=== PATIENT | female | born 1955 | race Two or more races ===

== ENCOUNTER 2024-05-30 09:27 | Inpatient (IN) | payer BC ==
[~2024-05-30] VITALS: Ht 175.3 cm; Wt 84.8 kg
[2024-05-30 10:11] LABS: Urine Bacteria FEW /hpf (None Seen); Urine Blood Negative /uL (Negative); Urine Clarity Turbid (Clear); Urine Color Yellow (Yellow); Urine Protein, UAD Negative (Negative); Urine Specific Gravity 1.011 (1.001-1.035); Urine Urobilinogen Normal (Negative); Urine WBC 4 /hpf (0 - 5)
[2024-05-30 11:27] LABS: Basophils # (auto) 0.1 10 ^3/uL (0-0.2); Basophils % (auto) 0.7 % (0.0-2.0); Eosinophils # (auto) 0.2 10 ^3/uL (0-0.8); Eosinophils % (auto) 2.6 % (0.0-7.0); Hemoglobin 13.3 g/dL (12.2-16.2); Lymphocytes # (auto) 2.4 10 ^3/uL (0.4-5.4); Mean Corpuscular Hemoglobin 31.8 pg (28.0-32.0); Mean Corpuscular Volume 93.4 fL (80.0-100.0); Monocytes # (auto) 0.5 10 ^3/uL (0-1.3); Monocytes % (auto) 6.6 % (0.0-12.0); Neutrophils % (auto) 61.1 % (37.0-80.0); Platelet Count (auto) 300 10^3/uL (140-450); Red Blood Cells 4.18 10^6/uL (4.0-5.20); White Blood Cell 8.2 10^3/uL (4.4-10.8)
[2024-05-30 11:38] LABS: Alanine Aminotransferase 24 U/L (7-40); Albumin 4.2 g/dL (3.2-4.8); Alkaline Phosphatase 75 U/L (46-116); Anion Gap 4 (5-15); Aspartate Aminotransferase 17 U/L (13-40); Blood Urea Nitrogen 11 mg/dL (9-23); Calcium 10.2 mg/dL (8.7-10.4); Carbon Dioxide 31 mmol/L (20-30); Chloride 104 mmol/L (98-107); Glucose 99 mg/dL (74-106); Potassium 4.2 mmol/L (3.5-5.1); Sodium 139 mmol/L (136-145)
[2024-05-30 11:39] LABS: Bilirubin, Total 0.7 mg/dL (0.2-1.0); Total Protein 7.5 g/dL (5.7-8.2)
[2024-05-30 12:22] VITALS: PULSE 63; RESP 16; O2SAT 100
[2024-05-30] MEDS: ACETAMINOPHEN 500 MG TAB PO ONE (12:46)
[2024-05-30] MEDS: cefTRIAXone 1GM/50ML D5W 50 ML IV ONE (12:46)
[2024-05-30] MEDS ORDERED: NITROGLYCERIN 0.4 MG SL TAB SL PRN (14:30)
[2024-05-30] MEDS: IOHEXOL 350 MG/ML 100ML IJ ONE (15:23)
[2024-05-30 16:10] LABS: INR 1.03 (0.9-1.15); Prothrombin Time 10.9 sec (9.3-11.8)
[2024-05-30 19:45] VITALS: PULSE 68; RESP 16; O2SAT 97
[2024-05-30 21:21] VITALS: PULSE 66; RESP 14
[2024-05-30 21:36] VITALS: BP 180/72; PULSE 69; RESP 18; TEMP 98; O2SAT 93
[2024-05-30] MEDS ORDERED: ATOR20TA50 PO (22:03)
[2024-05-30] MEDS ORDERED: METO10TA3 PO (22:03)
[2024-05-30] MEDS ORDERED: SOLI10TA39 PO (22:03)
[2024-05-30] MEDS ORDERED: ESCI5TAB PO (22:03)
[2024-05-30] MEDS ORDERED: MULT1TAB95 PO (22:03)
[2024-05-30] MEDS ORDERED: CALC500C65 PO (22:03)
[2024-05-30] MEDS ORDERED: NITR0.4O2 PR (22:03)
[2024-05-30] MEDS ORDERED: NORT25CA PO (22:03)
[2024-05-30] MEDS ORDERED: NITR1SPR TL (22:03)
[2024-05-30] MEDS ORDERED: OMEP20TA PO (22:03)
[2024-05-30] MEDS ORDERED: CHOL200010 PO (22:03)
[2024-05-30] MEDS ORDERED: LISI20TA56 PO (22:03)
[2024-05-30] MEDS ORDERED: METO-158 PO (22:03)
[2024-05-30] MEDS ORDERED: GABA-339 PO (22:03)
[2024-05-30] MEDS ORDERED: INSLISPI SC (22:03)
[2024-05-30] MEDS ORDERED: INSLANTI SC (22:03)
[2024-05-30] MEDS ORDERED: AMLO1TAB22 PO (22:03)
[2024-05-31] VITALS (10 sets, daily range): BP systolic 136–165; BP diastolic 61–75; PULSE 68–85; RESP 15–20; TEMP 97.4–98.9; O2SAT 92–99
[2024-05-31] MEDS: ATORVASTATIN 20 MG TAB PO SCH (00:16)
[2024-05-31 08:06] LABS: RPR Non Reactive (Non Reactive)
[2024-05-31] MEDS: LOSARTAN POTASSIUM 25 MG TAB PO SCH (10:00)
[2024-05-31] MEDS: ACETAMINOPHEN 325 MG TAB PO PRN (10:00)
[2024-05-31] MEDS: ASPirin 81 mg TAB PO SCH (10:00)
[2024-05-31 11:33] LABS: Anion Gap 5 (5-15); Carbon Dioxide 28 mmol/L (20-30); Chloride 102 mmol/L (98-107); Potassium 4.1 mmol/L (3.5-5.1); Sodium 135 mmol/L (136-145)
[2024-05-31 11:34] LABS: Calcium 9.8 mg/dL (8.7-10.4)
[2024-05-31 11:39] LABS: BUN/Creatinine Ratio 12.3 (10.0-20.0); Blood Urea Nitrogen 10 mg/dL (9-23); Glucose 202 mg/dL (74-106)
[2024-05-31] MEDS ORDERED: LISINOPRIL 20 MG TAB PO ONE (12:00)
[2024-05-31] MEDS ORDERED: METOPROLOL TARTRATE 50 MG TAB PO ONE (12:00)
[2024-05-31] MEDS: cefTRIAXone 1GM/50ML D5W 50 ML IV ONE (14:33)
[2024-05-31] MEDS: amLODIPine BESYLATE 5 MG TAB PO ONE (14:33)
[2024-05-31] MEDS: METOPROLOL TARTRATE 50 MG TAB PO SCH (22:17)
[2024-05-31 22:51] LABS: Amphetamine Screen, Urine Neg (NEGATIVE); Barbiturate Scree,Urine Neg (NEGATIVE); Benzodiazephine Screen, Urine Neg (NEGATIVE); Cocaine Screen, Urine Neg (NEGATIVE)
[2024-05-31 22:52] LABS: Cannabinoid Screen, Urine Neg (NEGATIVE); Opiate Scree,Urine Neg (NEGATIVE); Phencyclidine Screen, Urine Neg (NEGATIVE)
[2024-06-01] VITALS (7 sets, daily range): BP systolic 129–163; BP diastolic 70–88; PULSE 56–80; RESP 15–16; TEMP 36.8–37.1; O2SAT 92–96
[2024-06-01 07:03] LABS: Basophils # (auto) 0.1 10 ^3/uL (0-0.2); Basophils % (auto) 0.8 % (0.0-2.0); Eosinophils # (auto) 0.1 10 ^3/uL (0-0.8); Eosinophils % (auto) 1.7 % (0.0-7.0); Hematocrit 39.8 % (36.0-46.0); Hemoglobin 13.5 g/dL (12.2-16.2); Lymphocytes # (auto) 1.6 10 ^3/uL (0.4-5.4); Lymphocytes % (auto) 22.9 % (10.0-50.0); Mean Corpuscular Hemoglobin 31.4 pg (28.0-32.0); Mean Corpuscular Hgb Conc. 33.8 g/dL (32.0-36.0); Mean Corpuscular Volume 92.7 fL (80.0-100.0); Monocytes # (auto) 0.5 10 ^3/uL (0-1.3); Monocytes % (auto) 7.2 % (0.0-12.0); Neutrophils # (auto) 4.6 10 ^3/uL (1.6-8.6); Neutrophils % (auto) 67.4 % (37.0-80.0); Nucleated Red Blood Cells % 0.1 %; Platelet Count (auto) 285 10^3/uL (140-450); Red Cell Distribution Width 13.7 % (11.8-14.3); White Blood Cell 6.8 10^3/uL (4.4-10.8)
[2024-06-01 07:14] LABS: Anion Gap 5 (5-15); Carbon Dioxide 29 mmol/L (20-30); Chloride 102 mmol/L (98-107); Potassium 4.2 mmol/L (3.5-5.1); Sodium 136 mmol/L (136-145)
[2024-06-01 07:15] LABS: Calcium 9.7 mg/dL (8.7-10.4)
[2024-06-01 07:20] LABS: BUN/Creatinine Ratio 9.5 (10.0-20.0); Blood Urea Nitrogen 8 mg/dL (9-23); Glucose 168 mg/dL (74-106)
[2024-06-01] MEDS: LISINOPRIL 20 MG TAB PO SCH (09:33)
[2024-06-01] MEDS: cefTRIAXone 1GM/50ML D5W 50 ML IV SCH (09:34)
[2024-06-01] MEDS: amLODIPine BESYLATE 5 MG TAB PO SCH (09:34)
== END 2024-06-01 15:50 | disposition home or self-care (01) | DRG 74 ==
LOC: ER 09:27 → OVERFLOW 14:33 → EAST 14:33
PROVIDERS: ADMIT Internal Medicine; ATTEND Emergency Medicine
DX: E11.42 Type 2 diabetes mellitus with diabetic polyneuropathy (principal); N39.0 Urinary tract infection, site not specified; I10 Essential (primary) hypertension; E78.5 Hyperlipidemia, unspecified; E66.3 Overweight; Z90.49 Acquired absence of other specified parts of digestive tract; Z86.73 Personal history of transient ischemic attack (TIA), and cerebral infarction without residual deficits; Z68.27 Body mass index [BMI] 27.0-27.9, adult
CPT/HCPCS: 36415; 70450; 70496; 70551; 71045; 80048; 80053; 80307; 81001; 82607; 82746; 82962; 83036; 83880; 84100; 84443; 84484; 85025; 85610; 86592; 87086; 93005; 97163; G0378

== ENCOUNTER → 2024-08-21 | Outpatient (CLI) | payer BC ==
[~2024-08-21] MED LIST: AMLO1TAB22 PO; ATOR20TA50 PO; CALC500C65 PO; CHOL200010 PO; ESCI5TAB PO; GABA-339 PO; INSLANTI SC; INSLISPI SC; LISI20TA56 PO; METO-158 PO; METO10TA3 PO; MULT1TAB95 PO; NITR0.4O2 PR; NITR1SPR TL; NORT25CA PO; OMEP20TA PO; SOLI10TA39 PO
[2024-08-21 09:09] LABS: Basophils # (auto) 0 10 ^3/uL (0-0.2); Basophils % (auto) 0.7 % (0.0-2.0); Eosinophils # (auto) 0.1 10 ^3/uL (0-0.8); Eosinophils % (auto) 1.6 % (0.0-7.0); Hematocrit 39.3 % (36.0-46.0); Hemoglobin 13.3 g/dL (12.2-16.2); Lymphocytes # (auto) 1.7 10 ^3/uL (0.4-5.4); Lymphocytes % (auto) 23.5 % (10.0-50.0); Mean Corpuscular Hemoglobin 31.6 pg (28.0-32.0); Mean Corpuscular Hgb Conc. 33.9 g/dL (32.0-36.0); Mean Corpuscular Volume 93.4 fL (80.0-100.0); Monocytes # (auto) 0.5 10 ^3/uL (0-1.3); Monocytes % (auto) 7.3 % (0.0-12.0); Neutrophils # (auto) 4.9 10 ^3/uL (1.6-8.6); Neutrophils % (auto) 66.9 % (37.0-80.0); Nucleated Red Blood Cells % 0.1 %; Platelet Count (auto) 273 10^3/uL (140-450); Red Blood Cells 4.21 10^6/uL (4.0-5.20); Red Cell Distribution Width 13.7 % (11.8-14.3); White Blood Cell 7.3 10^3/uL (4.4-10.8)
[2024-08-21 09:29] LABS: Alanine Aminotransferase 16 U/L (7-40); Alkaline Phosphatase 75 U/L (46-116); Anion Gap 5 (5-15); Aspartate Aminotransferase 17 U/L (13-40); BUN/Creatinine Ratio 14.4 (10.0-20.0); Blood Urea Nitrogen 13 mg/dL (9-23); Calcium 10.2 mg/dL (8.7-10.4); Carbon Dioxide 31 mmol/L (20-31); Chloride 106 mmol/L (98-107); Glucose 95 mg/dL (74-106); Potassium 4.4 mmol/L (3.5-5.1); Sodium 142 mmol/L (136-145)
[2024-08-21 09:30] LABS: Bilirubin, Total 0.7 mg/dL (0.2-1.0); Total Protein 6.8 g/dL (5.7-8.2)
== END | disposition home or self-care (01) ==
LOC: LAB 08:17
PROVIDERS: ATTEND Internal Medicine Nephrology
DX: R14.0 Abdominal distension (gaseous)
CPT/HCPCS: 36415; 80053; 82306; 83735; 85025

== ENCOUNTER → 2024-12-26 | Outpatient (CLI) | payer BC ==
[2024-12-26 08:43] LABS: Basophils # (auto) 0.1 10 ^3/uL (0-0.2); Basophils % (auto) 0.9 % (0.0-2.0); Eosinophils # (auto) 0.2 10 ^3/uL (0-0.8); Eosinophils % (auto) 2.6 % (0.0-7.0); Hematocrit 38.5 % (36.0-46.0); Hemoglobin 13.1 g/dL (12.2-16.2); Lymphocytes # (auto) 1.9 10 ^3/uL (0.4-5.4); Lymphocytes % (auto) 24.3 % (10.0-50.0); Mean Corpuscular Hemoglobin 31.9 pg (28.0-32.0); Monocytes # (auto) 0.6 10 ^3/uL (0-1.3); Monocytes % (auto) 7.5 % (0.0-12.0); Neutrophils # (auto) 5.1 10 ^3/uL (1.6-8.6); Neutrophils % (auto) 64.7 % (37.0-80.0); Nucleated Red Blood Cells % 0.1 %; Platelet Count (auto) 257 10^3/uL (140-450); Red Cell Distribution Width 13.8 % (11.8-14.3); White Blood Cell 7.9 10^3/uL (4.4-10.8)
[2024-12-26 09:00] LABS: Alanine Aminotransferase 14 U/L (7-40); Albumin 4.3 g/dL (3.2-4.8); Alkaline Phosphatase 84 U/L (46-116); Anion Gap 8 (5-15); Aspartate Aminotransferase 14 U/L (13-40); BUN/Creatinine Ratio 12.1 (10.0-20.0); Bilirubin, Total 0.7 mg/dL (0.2-1.0); Blood Urea Nitrogen 12 mg/dL (9-23); Carbon Dioxide 29 mmol/L (20-31); Chloride 102 mmol/L (98-107); Potassium 4.7 mmol/L (3.5-5.1); Sodium 139 mmol/L (136-145); Total Protein 7.1 g/dL (5.7-8.2)
[2024-12-26 09:01] LABS: Glucose 148 mg/dL (74-106); Urine Bacteria FEW /hpf (None Seen); Urine Blood Negative /uL (Negative); Urine Clarity Turbid (Clear); Urine Color Yellow (Yellow); Urine Mucus FEW (None Seen); Urine Protein, UAD Negative (Negative); Urine Specific Gravity 1.023 (1.001-1.035); Urine Squamous Epithelial Cell FEW /hpf (<5); Urine Urobilinogen 2 mg/dL (Negative); Urine WBC 4 /HPF (0-5); Urine pH 5.5 (5.0-9.0)
[2024-12-26 09:07] LABS: Creatinine, Urine 141.64 mg/dL (30.0-125.0)
== END | disposition home or self-care (01) ==
LOC: LAB 08:25
PROVIDERS: ATTEND Internal Medicine Nephrology
DX: E11.22 Type 2 diabetes mellitus with diabetic chronic kidney disease (principal); N18.30 Chronic kidney disease, stage 3 unspecified; E11.21 Type 2 diabetes mellitus with diabetic nephropathy; E21.3 Hyperparathyroidism, unspecified; E55.9 Vitamin D deficiency, unspecified; M10.9 Gout, unspecified; N39.0 Urinary tract infection, site not specified; R80.9 Proteinuria, unspecified; D63.1 Anemia in chronic kidney disease
CPT/HCPCS: 36415; 80053; 81001; 82043; 82570; 85025

== ENCOUNTER → 2025-01-22 | Outpatient (CLI) | payer BC ==
[2025-01-22 08:49] LABS: Basophils # (auto) 0.1 10 ^3/uL (0-0.2); Basophils % (auto) 1.1 % (0.0-2.0); Eosinophils # (auto) 0.2 10 ^3/uL (0-0.8); Eosinophils % (auto) 2.8 % (0.0-7.0); Hematocrit 40.3 % (36.0-46.0); Hemoglobin 13.4 g/dL (12.2-16.2); Lymphocytes # (auto) 1.3 10 ^3/uL (0.4-5.4); Lymphocytes % (auto) 19.5 % (10.0-50.0); Mean Corpuscular Hemoglobin 30.8 pg (28.0-32.0); Mean Corpuscular Hgb Conc. 33.3 g/dL (32.0-36.0); Mean Corpuscular Volume 92.4 fL (80.0-100.0); Monocytes # (auto) 0.5 10 ^3/uL (0-1.3); Monocytes % (auto) 7.7 % (0.0-12.0); Neutrophils # (auto) 4.5 10 ^3/uL (1.6-8.6); Neutrophils % (auto) 68.9 % (37.0-80.0); Platelet Count (auto) 252 10^3/uL (140-450); Red Blood Cells 4.36 10^6/uL (4.0-5.20); Red Cell Distribution Width 13.6 % (11.8-14.3); White Blood Cell 6.5 10^3/uL (4.4-10.8)
[2025-01-22 08:51] LABS: Urine Bacteria None Seen /hpf (None Seen)
[2025-01-22 09:11] LABS: Alanine Aminotransferase 15 U/L (7-40); Albumin 4.2 g/dL (3.2-4.8); Alkaline Phosphatase 84 U/L (46-116); Anion Gap 8 (5-15); Aspartate Aminotransferase 17 U/L (13-40); BUN/Creatinine Ratio 15.5 (10.0-20.0); Blood Urea Nitrogen 15 mg/dL (9-23); Calcium 9.9 mg/dL (8.7-10.4); Chloride 103 mmol/L (98-107); Cholesterol 146 mg/dL (< 200); LDL Cholesterol 69 mg/dL (< 100); Potassium 4.8 mmol/L (3.5-5.1); Sodium 142 mmol/L (136-145); Triglycerides 54 mg/dL (< 150)
[2025-01-22 09:15] LABS: Carbon Dioxide 31 mmol/L (20-31); Glucose 147 mg/dL (74-106); HDL Cholesterol 60 mg/dL (40-59)
[2025-01-22 09:27] LABS: Urine Blood Negative /uL (Negative); Urine Clarity Clear (Clear); Urine Color Yellow (Yellow); Urine Mucus FEW (None Seen); Urine Protein, UAD Negative (Negative); Urine Squamous Epithelial Cell FEW /hpf (<5); Urine Urobilinogen Normal (Negative); Urine WBC 1 /HPF (0-5); Urine pH 5.5 (5.0-9.0)
[2025-01-22 09:38] LABS: Creatinine, Urine 128.97 mg/dL (30.0-125.0)
== END | disposition home or self-care (01) ==
LOC: LAB 08:32
PROVIDERS: ATTEND Internal Medicine
DX: E11.22 Type 2 diabetes mellitus with diabetic chronic kidney disease (principal); N18.2 Chronic kidney disease, stage 2 (mild); E11.40 Type 2 diabetes mellitus with diabetic neuropathy, unspecified; I25.10 Atherosclerotic heart disease of native coronary artery without angina pectoris; R82.90 Unspecified abnormal findings in urine; Z00.01 Encounter for general adult medical examination with abnormal findings
CPT/HCPCS: 36415; 80053; 80061; 81001; 82043; 82570; 83036; 84439; 84443; 85025

== ENCOUNTER 2025-06-11 13:15 | Inpatient (IN) | payer BC ==
[~2025-06-11] VITALS: Ht 175.3 cm; Wt 93.0 kg
--- NOTE | 2025-06-11 13:46 | ED.PDOC ---
HPI (NEURO) HPI Comments 69y F who presents to the ED for chief complaint of generalized weakness. Pt presents with daughter who states pt has been having intermittent falls for the past 2x months. Pt daughter states pt did have 2x falls in the past 1x week and states pt did hit her head without any loc last Tuesday and did not seek medical care then. Pt also had fall from bed yesterday and daughter found face down in bedroom floor while attempting to grab a glass of water from dresser. Pt in the ED, states feels weak with associated dizziness and nausea. Pt in the ED, is alert and oriented x 4. Pt does present in wheelchair. Pt otherwise has stable vitals in the ED. Chief Complaint: General Weakness Time Seen by MD: 13:42 Primary Care Provider: GILDARDO Flores Notes: Nurses Notes, Medications, Allergies Information Source: Patient Mode of Arrival: Wheelchair Brought in by: daughter Severity: Moderate Dizziness/Weakness Severity: Unable to do activities Headache Severity: None Timing: Weeks, Months Duration: Since onset Prehospital treatment: None Onset: At rest Circumstances: Spontaneous Symptoms: Weakness History of: DM, Hypertension Modifying factors: Nothing Associated Signs and Symptoms: Nausea, Weakness, Other (dizziness) Past Medical History PAST MEDICAL HISTORY: DM, High Lipids, HTN, UTI'S Past Medical History (Other): stage 2 CKD Surgical History: Appendectomy, Cholecystectomy Surgical History (Other): L knee surgery Family History Family History: Reviewed,noncontributory to illness, No family hx of Heart lorrie, No family hx of HTN, No family hx ofKidney lorrie, No family hx of Liver lorrie, No family hx of Lung lorrie, No family hx of Stroke, Family hx of DM, Family hx of Cancer Social History Smoker: Non-Smoker Alcohol: Denies ETOH Use Drugs: Denies Drug Use Constitutional: reports: malaise, weakness; denies: chills, diaphoresis, fatigue, fever, sweats, others EENTM: denies: blurred vision, double vision, ear bleeding, ear discharge, ear drainage, ear pain, ear ringing, eye pain, eye redness, hearing loss, mouth pain, mouth swelling, nasal discharge, nose bleeding, nose congestion, nose pain, photophobia, tearing, throat pain, throat swelling, voice changes, others Respiratory: denies: cough, hemoptysis, orthopnea, SOB at rest, shortness of breath, SOB with excertion, stridor, wheezing, others Cardiovascular: denies: chest pain, dizzy spells, diaphoresis, Dyspnea on exertion, edema, irregular heart beat, left arm pain, lightheadedness, palpitations, PND, syncope, others Gastrointestinal: reports: nausea; denies: abdomen distended, abdominal pain, blood streaked bowels, constipated, diarrhea, dysphagia, difficulty swallowing, hematemesis, melena, poor appetite, poor fluid intake, rectal bleeding, rectal pain, vomiting, others Genitourinary: denies: abnormal vagina bleeding, burning, dyspareunia, dysuria, flank pain, frequency, hematuria, incontinence, pain, , vagina discharge, urgency, others Neurological: reports: dizziness; denies: fainting, headache, left sided numbness, left sided weakness, numbness, paresthesia, pre-existing deficit, right sided numbness, right sided weakness, seizure, speech problems, tingling, tremors, weakness, others Musculoskeletal: denies: back pain, gout, joint pain, joint swelling, muscle pain, muscle stiffness, neck pain, others Integumetry: denies: bruises, change in color, change in hair/nails, dryness, laceration, lesions, lumps, rash, wounds, others Allergic/Immunocompromised: denies: Difficulty Healing, Frequent Infections, Hives, Itching, others Hematologic/Lymphatic: denies: anemia, blood clots, easy bleeding, easy bruis ing, swollen glands, others Endocrine: denies: excessive hunger, excessive sweating, excessive thirst, exc essive urination, flushing, intolerance to cold, intolerance to heat, unexplained weight gain, unexplained weight loss, others Psychiatric: denies: anxiety, bipolar disorder, depression, hopeless, panic disorder, schizophrenia, sleepless, suicidal, others All Other Systems: Reviewed and Negative Physical Exam General Appearance: Moderate Distress HEENT: Normal ENT Inspection, Pharynx Normal, TMs Normal Neck: Full Range of Motion, Non-Tender, Normal, Normal Inspection Respiratory: Chest Non-Tender, Lungs Clear, No Accessory Muscle Use, No Respiratory Distress, Normal Breath Sounds Cardiovascular: No Edema, No JVD, No Murmur, No Gallop, Normal Peripheral Pulses, Regular Rate/Rhythm Breast Exam: Deferred Gastrointestinal: No Organomegaly, Non Tender, No Pulsatile Mass, Normal Bowel Sounds, Soft Genitalia: Deferred Pelvic: Deferred Rectal: Deferred Extremities: No calf tenderness, Normal capillary refill, Pedal edema Musculoskeletal : Apperance: Normal Neurologic: Alert, block engraver II-XII nml as Tested, Motor Weakness, Normal Affect, Normal Mood, No Sensory Deficits Cerebellar Function: Normal Reflexes: Normal Skin: Dry, Pallor, Warm Lymphatic: No Adenopathy Was a procedure done? Was a procedure done?: No Differential Diagnosis (SZ) Seizure: N/A General Weakness: Anemia, Dehydration, Electrolyte imbalance, Encephalopathy, Hypoglycemia, Other (UTI, CKD, failure to thrive, h/o falls, ) Headache: Closed Head Injury X-Ray, Labs, Meds, VS Vital Signs Date Time Temp Pulse Resp B/P (MAP) Pulse Ox O2 Delivery O2 Flow Rate FiO2 06/11/25 13:21 97.6 77 17 139/79 99 97.6 Lab Test 06/11/25 13:57 06/11/25 13:40 Range/Units Urine Color Yellow Yellow Urine Clarity Clear Clear Urine pH 5.5 5.0-9.0 Urine Specific [place] 1.016 1.001-1.035 Urine Protein Negative Negative Urine Ketones Trace Negative Urine Blood Negative Negative /uL Urine Nitrite Negative Negative Urine Bilirubin Negative Negative Urine Urobilinogen Normal Negative mg/dL Urine Leukocyte Esterase 2+ Negative /uL Urine RBC 2 0 - 4 /hpf Urine Microscopic WBC 7 H 0-5 /HPF Urine Squamous Epithelial Cells Few <5 /hpf Urine Bacteria None seen None Seen /hpf Urine Mucus Few None Seen Urine Glucose Normal Normal mg/dL White Blood Count 6.3 4.4-10.8 10^3/uL Red Blood Count 4.23 4.0-5.20 10^6/uL Hemoglobin 13.0 12.2-16.2 g/dL Hematocrit 38.8 36.0-46.0 % Mean Corpuscular Volume 91.7 80.0-100.0 fL Mean Corpuscular Hemoglobin 30.7 28.0-32.0 pg Mean Corpuscular Hemoglobin Concent 33.4 32.0-36.0 g/dL Red Cell Distribution Width 13.7 11.8-14.3 % Platelet Count 249 140-450 10^3/uL Mean Platelet Volume 7.6 6.9-10.8 fL Neutrophils (%) (Auto) 86.3 H 37.0-80.0 % Lymphocytes (%) (Auto) 6.3 L 10.0-50.0 % Monocytes (%) (Auto) 6.5 0.0-12.0 % Eosinophils (%) (Auto) 0.2 0.0-7.0 % Basophils (%) (Auto) 0.7 0.0-2.0 % Neutrophils # (Auto) 5.5 1.6-8.6 10 ^3/uL Lymphocytes # (Auto) 0.4 0.4-5.4 10 ^3/uL Monocytes # (Auto) 0.4 0-1.3 10 ^3/uL Eosinophils # (Auto) 0 0-0.8 10 ^3/uL Basophils # (Auto) 0 0-0.2 10 ^3/uL Nucleated Red Blood Cells 0.0 % Sodium Level 136 136-145 mmol/L Potassium Level 3.9 3.5-5.1 mmol/L Chloride Level 101 98-107 mmol/L Carbon Dioxide Level 27 20-31 mmol/L Anion Gap 8 5-15 Blood Urea Nitrogen 13 9-23 mg/dL Creatinine 1.06 H 0.550-1.02 mg/dL Glomerular Filtration Rate Calc 57 >90 mL/min BUN/Creatinine Ratio 12.3 10.0-20.0 Serum Glucose 96 74-106 mg/dL Calcium Level 9.6 8.7-10.4 mg/dL B-Type Natriuretic Peptide 83.65 0-100 pg/mL PROCEDURE(s): CXR2 - CHEST TWO VIEWS ROUTINE IMPRESSION: No acute cardiopulmonary disease. PROCEDURE(s): HWOCT - HEAD WITHOUT CONTRAST IMPRESSION: No intracranial hemorrhage or mass effect. Prominent pituitary gland measuring 12 x 9 mm. Recommend correlation with appropriate lab values. MRI of the brain with and without contrast, pituitary protocol recommended for further evaluation. The CBC is within normal limits The chemistry panel is within normal limits The urine test is positive for UTI Patient had an IV Hep-Lock established The patient is given Rocephin 1 g IV for the UTI Images Reviewed?: Images reviewed and evaluated by me Time of 1ST Reevaluation: 14:15 Reevaluation 1ST: Unchanged Patient Education/Counseling: Diagnosis, Treatment, Prognosis Family Education/Counseling: Diagnosis, Treatment, Prognosis Departure 1 Departure Time of Disposition: 19:21 Impression: Primary Impression: Autonomic dysfunction Additional Impression: UTI (urinary tract infection) Qualified Codes: N30.00 - Acute cystitis without hematuria Disposition: ADMITTED INPATIENT Admit to: Med Surg Condition: Fair Critical Care Note Critical Care Time?: No Stability Stability form required: Yes Unstable for transfer: ED Physician Assesment (Clinical assesment) Heart Score Heart Score: Heart Score Response (Comments) Value History N/A 0 EKG N/A 0 Age N/A 0 Risk Factors N/A 0 Troponin N/A 0 Total 0 I personally scribed for SCOOTER RANDHAWA MD ([email or web address]) on 06/11/25 at 13:46. Electronically submitted by Aashish Reynoso ([email or web address]). I personally scribed for SCOOTER RANDHAWA MD ([email or web address]) on 06/11/25 at 15:02. Elec tronically submitted by Aashish Reynoso ([email or web address]). SCOOTER RANDHAWA MD Jun 11, 2025 13:46
[2025-06-11 14:30] LABS: Hematocrit 38.8 % (36.0-46.0); Hemoglobin 13.0 g/dL (12.2-16.2); Mean Corpuscular Hemoglobin 30.7 pg (28.0-32.0); Mean Corpuscular Volume 91.7 fL (80.0-100.0); Nucleated Red Blood Cells % 0.0 %
[2025-06-11 14:36] LABS: Chloride 101 mmol/L (98-107); Potassium 3.9 mmol/L (3.5-5.1); Sodium 136 mmol/L (136-145)
[2025-06-11 14:37] LABS: Anion Gap 8 (5-15); Carbon Dioxide 27 mmol/L (20-31)
[2025-06-11 14:38] LABS: Calcium 9.6 mg/dL (8.7-10.4)
[2025-06-11 14:42] LABS: Glucose 96 mg/dL (74-106)
[2025-06-11 14:43] LABS: BUN/Creatinine Ratio 12.3 (10.0-20.0); Blood Urea Nitrogen 13 mg/dL (9-23)
--- NOTE | 2025-06-11 14:49 | DVH ---
XY CHEST TWO VIEWS ROUTINE CLINICAL HISTORY: weakness COMPARISON: XY CHEST TWO VIEWS ROUTINE on DOS: 09/04/24, XY CHEST TWO VIEWS ROUTINE on DOS: 09/08/23, PCP6 on DOS: 10/20/22 TECHNIQUE: Frontal and lateral view of the chest was obtained FINDINGS: Lines and Tubes: None Lungs: No focal consolidation. Pleura: No effusion. No pneumothorax. Cardiomediastinal contours: Unremarkable Bones: No acute osseous abnormality. IMPRESSION: No acute cardiopulmonary disease.
--- NOTE | 2025-06-11 14:50 | DVH ---
CT HEAD WITHOUT CONTRAST Indication: weakness EXAM DATE: 06/11/2025 02:12 PM COMPARISON: CT HEAD WITHOUT CONTRAST on DOS: 05/30/24 report only, images not available for comparison TECHNIQUE: CT of the head without intravenous contrast. RADIATION DOSE: CTDIvol: 57 mGy, DLP: 1006 mGy*cm FINDINGS: There is no intracranial hemorrhage. There is no extra-axial fluid, midline shift. Prominent/ enlarg ed pituitary gland measuring 12 x 9 mm. The ventricles are midline and normal in size. Basilar cister ns are patent. Ozuna-white differentiation is maintained. The paranasal sinuses and mastoids are well-pneumatized. Imaged portion of the orbits are unremarkabl e. IMPRESSION: No intracranial hemorrhage or mass effect. Prominent pituitary gland measuring 12 x 9 mm. Recommend correlation with appropriate lab values. MR I of the brain with and without contrast, pituitary protocol recommended for further evaluation.
[2025-06-11 15:55] LABS: Urine Protein, UAD Negative (Negative)
[2025-06-11 20:16] VITALS: PULSE 74; RESP 20; O2SAT 95
--- NOTE | 2025-06-11 22:43 | DVHHPRES ---
History of Present Illness Resident Creating Document: GUS NIELSEN RESIDENT History of Present Illness Vivian Abrams is a 69 year old female with past medical history of diabetes mellitus, hyperlipidemia, hypertension, recurrent UTIs, stage II CKD who presented to the ED with chief complaint of generalized weakness, and fall this morning due to leg weakness. Patient states she had a history of fall last week with head trauma due to loss of balance, and that she had multiple falls over the last 3 months. He also had fall from bed yesterday and daughter found face down in bedroom floor while attempting to grab a glass of water from dresser. Patient also complained of feeling nauseous, dizzy. Patient is admitted for further management. Surgical history: Appendicectomy, cholecystectomy Family History: Reviewed, noncontributory Personal history: Patient denies smoking, drinking, drug use Lives with: Family PCP: Dr. Gupta Review of Systems Constitutional: Yes: Weakness, Other (Dizziness); No: Fever, Chills, Sweats, Malaise Eyes: No: Pain, Vision change, Conjunctivae inflammation, Eyelid inflammation, Other, Redness ENT: No: Ear pain, Ear discharge, Nose pain, Nose discharge, Nose congestion, M outh pain, Mouth swelling, Throat pain, Throat swelling, Other Respiratory: No: Cough, Dry, Shortness of breath, SOB with excertion, Wheezing, Hemoptysis, Pleuritic Pain, Sputum, Wheezing, Other Cardiovascular: No: Chest Pain, Palpitations, Orthopnea, Paroxysmal Noc. Dyspnea, Edema, Lt Headedness, Other Gastrointestinal: Nausea; No: Vomiting, Abdominal Pain, Diarrhea, Constipation, Melena, Hematochezia, Other Genitourinary: No Dysuria, No Frequency, No Incontinence, No Hematuria, No Retention, No Other Musculoskeletal: No: other, neck pain, shoulder pain, arm pain, back pain, hand pain, leg pain, foot pain Skin: No: Rash, Lesions, Jaundice, Bruising, Other Neurological: No: Weakness, Numbness, Incoordination, Change in speech, Confu jesika, Seizures, Other Allergies: Coded Allergies: No Known Drug Allergy (Verified Allergy, Unknown, 05/30/24) Exam Vital Signs Vital Signs Date Time Temp Pulse Resp B/P (MAP) Pulse Ox O2 Delivery O2 Flow Rate FiO2 06/11/25 20:16 74 20 95 Room Air* 0 21 06/11/25 20:16 98.4 136/75 (95) 98.4 Exam General: Patient alert and oriented in person, place and time. Patient following commands. Generalized weakness HEENT: Normocephalic, atraumatic, moist mucous membranes Respiratory/pulmonary: Clear lungs bilaterally, vesicular murmurs present in almost all lung palma, no associated crackles or wheezes. Cardiovascular: Normal heart sounds S1 and S2 with no associated murmurs Abdomen: Abdomen nondistended, there is no pain to palpation in any of the abdominal quadrants, no palpable masses. Extremities: Mild pitting edema Peripheral Pulses: 3+ Radial (R). 3+ Radial (L). 3+ Dorsalis pedis (R). 3+ Dorsalis pedis(L) Skin: No rashes or pruritus, there is no sacral edema present at this time. Neurological: Intact cranial nerves with no focal neurologic deficits Labs/Xrays Labs Test 06/11/25 13:57 06/11/25 13:40 Range/Units Urine Color Yellow Yellow Urine Clarity Clear Clear Urine pH 5.5 5.0-9.0 Urine Specific [place] 1.016 1.001-1.035 Urine Protein Negative Negative Urine Ketones Trace Negative Urine Blood Negative Negative /uL Urine Nitrite Negative Negative Urine Bilirubin Negative Negative Urine Urobilinogen Normal Negative mg/dL Urine Leukocyte Esterase 2+ Negative /uL Urine RBC 2 0 - 4 /hpf Urine Microscopic WBC 7 H 0-5 /HPF Urine Squamous Epithelial Cells Few <5 /hpf Urine Bacteria None seen None Seen /hpf Urine Mucus Few None Seen Urine Glucose Normal Normal mg/dL White Blood Count 6.3 4.4-10.8 10^3/uL Red Blood Count 4.23 4.0-5.20 10^6/uL Hemoglobin 13.0 12.2-16.2 g/dL Hematocrit 38.8 36.0-46.0 % Mean Corpuscular Volume 91.7 80.0-100.0 fL Mean Corpuscular Hemoglobin 30.7 28.0-32.0 pg Mean Corpuscular Hemoglobin Concent 33.4 32.0-36.0 g/dL Red Cell Distribution Width 13.7 11.8-14.3 % Platelet Count 249 140-450 10^3/uL Mean Platelet Volume 7.6 6.9-10.8 fL Neutrophils (%) (Auto) 86.3 H 37.0-80.0 % Lymphocytes (%) (Auto) 6.3 L 10.0-50.0 % Monocytes (%) (Auto) 6.5 0.0-12.0 % Eosinophils (%) (Auto) 0.2 0.0-7.0 % Basophils (%) (Auto) 0.7 0.0-2.0 % Neutrophils # (Auto) 5.5 1.6-8.6 10 ^3/uL Lymphocytes # (Auto) 0.4 0.4-5.4 10 ^3/uL Monocytes # (Auto) 0.4 0-1.3 10 ^3/uL Eosinophils # (Auto) 0 0-0.8 10 ^3/uL Basophils # (Auto) 0 0-0.2 10 ^3/uL Nucleated Red Blood Cells 0.0 % Sodium Level 136 136-145 mmol/L Potassium Level 3.9 3.5-5.1 mmol/L Chloride Level 101 98-107 mmol/L Carbon Dioxide Level 27 20-31 mmol/L Anion Gap 8 5-15 Blood Urea Nitrogen 13 9-23 mg/dL Creatinine 1.06 H 0.550-1.02 mg/dL Glomerular Filtration Rate Calc 57 >90 mL/min BUN/Creatinine Ratio 12.3 10.0-20.0 Serum Glucose 96 74-106 mg/dL Calcium Level 9.6 8.7-10.4 mg/dL B-Type Natriuretic Peptide 83.65 0-100 pg/mL SEPSIS Sepsis Screen Date sepsis recognized/suspect: Jun 11, 2025 Time Sepsis recognized/suspect: 2022 Recent Procedure: No On Antibiotic Therapy: No Respiratory Rate >20: No Heart Rate >90: No Temp<36 C (96.8 F) or >38.3 C: No SBP <90 or MAP <65 mmHG: No New Acute Mental Status Change: No Is the patient on CPAP, BIPAP,: No Vital Signs Date Time Temp Pulse Resp B/P (MAP) Pulse Ox O2 Delivery O2 Flow Rate FiO2 06/11/25 20:16 74 20 95 Room Air* 0 21 06/11/25 20:16 98.4 74 20 136/75 (95) 95 98.4 Laboratory Tests Test 06/11/25 13:40 White Blood Count 6.3 10^3/uL (4.4-10.8) Medications Medications Dose Ordered Sig/[place] Route Start Time Stop Time Status Last Admin Dose Admin Ceftriaxone Sodium 50 ml @ 100 mls/hr ONCE ONCE IV 06/11/25 19:30 06/11/25 19:59 DC 06/11/25 20:37 100 MLS/HR Assessment/Plan Assessment/Plan Assessment and plan # presyncope # recurrent falls - Neurology consult , pending - Orthostatic vitals - BNP - Tropes - Folic acid - B12 - TSH - Carotid duplex - echo - EKG # acute complicated UTI - IV ceftriaxone # Hypertension - Continue home meds #Hyperlipidemia -continue home meds # Type 2 diabetes mellitus - HbA1c - mild insulin sliding scale # obesity, BMI 31.8 -patient advised on lifestyle modifications, diet, exercise for 13 minutes Goals of care addressed with the patient for more than 31 minutes: Full code status Case discussed with Dr. Mann , patient and nurse Plan discussed with: Patient Date of Service: Jun 11, 2025 Billing Provider: PIPER MANN MD Common Visit Codes: 44488-[id number] INP/OBS CARE (HIGH) Secondary Visit Codes: [id number]-[id number] CARE PLAN 30 MINUTES GUS NIELSEN RESIDENT Jun 11, 2025 22:43
[2025-06-12] VITALS (7 sets, daily range): BP systolic 106–142; BP diastolic 57–75; PULSE 61–80; RESP 16–18; TEMP 97.5–98.4; O2SAT 94–99
[2025-06-12] MEDS ORDERED: DEXTROSE (50%) 50ML SYRG IV PRN (06:45)
[2025-06-12 07:26] LABS: Alanine Aminotransferase 28 U/L (7-40); Albumin 4.0 g/dL (3.2-4.8); Alkaline Phosphatase 84 U/L (46-116); Anion Gap 10 (5-15); BUN/Creatinine Ratio 12.0 (10.0-20.0); Blood Urea Nitrogen 11 mg/dL (9-23); Calcium 9.3 mg/dL (8.7-10.4); Carbon Dioxide 27 mmol/L (20-31); Chloride 102 mmol/L (98-107); Cholesterol 120 mg/dL (< 200); Sodium 139 mmol/L (136-145); Total Protein 7.2 g/dL (5.7-8.2); Triglycerides 73 mg/dL (< 150)
[2025-06-12 07:27] LABS: Bilirubin, Direct 0.3 mg/dL (<0.3); Bilirubin, Total 0.7 mg/dL (0.2-1.0); HDL Cholesterol 52 mg/dL (40-59)
[2025-06-12 07:29] LABS: INR 1.04 (0.9-1.15); Prothrombin Time 11.0 sec (9.3-11.8)
[2025-06-12 07:30] LABS: Hematocrit 38.2 % (36.0-46.0); Hemoglobin 13.1 g/dL (12.2-16.2); Mean Corpuscular Hemoglobin 31.2 pg (28.0-32.0); Mean Corpuscular Volume 90.8 fL (80.0-100.0); Nucleated Red Blood Cells % 0.1 %
[2025-06-12 07:33] LABS: Glucose 123 mg/dL (74-106); Potassium 3.3 mmol/L (3.5-5.1)
[2025-06-12] MEDS: METOPROLOL TARTRATE 50 MG TAB PO SCH (09:40)
--- NOTE | 2025-06-12 09:48 | DVH ---
Carotid Duplex Date: 06/12/2025 08:36 AM Clinical History: presyncope Comparison: US ECHO 2D MODE CARDIAC DOP on DOS: 02/07/25, CT ANGIO HEAD/NECK on DOS: 05/30/24 Technique: Duplex Doppler evaluation of the extracranial carotid and vertebral arteries including col or Doppler and spectral/pulsed waveform analysis was performed. Findings: Velocities and ratios within normal limits. IMPRESSION: No hemodynamically significant stenosis noted in the right carotid system. No hemodynamically significant stenosis noted in the left carotid system. Reference: Radiology 2003; 229:[id number]
[2025-06-12] MEDS: InsuLIN REG 1unit/0.01ml Soln (100units/ml) SC SCH (11:30)
[2025-06-12] MEDS: ACCU-CHEK COMFORT CURVE STRIP VI SCH (11:30)
--- NOTE | 2025-06-12 11:55 | DVHPN2 ---
Reviewed: Care Plan, H&P, Labs, Medications, Previous Orders, Radiology Changes from previous H/P or p: No Changes Eyes: No Pain, No Vision change, No Conjunctivae inflammation, No Eyelid inflammation, No Other, No Redness ENT: No Ear pain, No Ear discharge, No Nose pain, No Nose discharge, No Nose congestion, No Mouth pain, No Mouth swelling, No Throat pain, No Throat swelling, No Other Cardiovascular: No Chest Pain, No Palpitations, No Orthopnea, No Paroxysmal Noc. Dyspnea, No Edema, No Lt Headedness, No Other Respiratory: No Cough, No Dry, No Shortness of breath, No SOB with excertion, No Wheezing, No Hemoptysis, No Pleuritic Pain, No Sputum, No Other Gastrointestinal: Nausea; No Vomiting, No Abdominal Pain, No Diarrhea, No Constipation, No Melena, No Hematochezia, No Other Genitourinary: No Dysuria, No Frequency, No Incontinence, No Hematuria, No Retention, No Other Musculoskeletal: No other, No neck pain, No shoulder pain, No arm pain, No back pain, No hand pain, No leg pain, No foot pain Skin: No Rash, No Lesions, No Jaundice, No Bruising, No Other Objective Vitals Vital Signs Date Time Temp Pulse Resp B/P (MAP) Pulse Ox O2 Delivery O2 Flow Rate FiO2 06/12/25 09:40 80 106/59 06/12/25 09:09 97.9 18 99 97.9 06/12/25 08:00 Room Air* 0 21 Medications Current Medications Medications Dose Ordered Sig/[place] Route Start Time Stop Time Status Last Admin Dose Admin Ceftriaxone Sodium 50 ml @ 100 mls/hr Q24H IV 06/12/25 20:00 Metoprolol Tartrate 50 mg DAILY PO 06/12/25 10:00 06/12/25 09:40 50 MG Diagnostic Test (Pha) 1 strip ACHS 06/12/25 07:00 Insulin Human Regular ACHS SC 06/12/25 07:00 Dextrose 50 ml UD PRN IV 06/12/25 06:45 Atorvastatin Calcium 40 mg HS PO 06/12/25 22:00 Laboratory Results Laboratory Tests 06/12/25 06:36 Chemistry Test 06/11/25 13:40 06/12/25 06:36 Calcium Level 9.6 mg/dL (8.7-10.4) 9.3 mg/dL (8.7-10.4) Albumin 4.0 g/dL (3.2-4.8) Total Protein 7.2 g/dL (5.7-8.2) Coagulation Test 06/12/25 06:36 Prothrombin Time 11.0 sec (9.3-11.8) Prothrombin Time INR 1.04 (0.9-1.15) D-Dimer, Quantitative 1.13 mg/L FEU (0.0-0.49) H Lipid panel Test 06/12/25 06:36 Cholesterol Level 120 mg/dL (< 200) HDL Cholesterol 52 mg/dL (40-59) Triglycerides Level 73 mg/dL (< 150) Cardiac Markers Test 06/11/25 13:40 06/12/25 06:36 B-Type Natriuretic Peptide 83.65 pg/mL (0-100) 17.91 pg/mL (0-100) LFT Test 06/12/25 06:36 Alanine Aminotransferase (ALT) 28 U/L (7-40) Alkaline Phosphatase 84 U/L (46-116) Aspartate Amino Transferase (AST) 52 U/L (13-40) H Direct Bilirubin 0.3 mg/dL (<0.3) Total Bilirubin 0.7 mg/dL (0.2-1.0) HgA1c, TSH Test 06/12/25 06:36 Hemoglobin A1c 6.7 % A1C (<5.7) H Thyroid Stimulating Hormone (TSH) 4.83 uIU/mL (0.55-4.78) H Urinalysis Test 06/11/25 13:57 Urine Color Yellow (Yellow) Urine Clarity Clear (Clear) Urine pH 5.5 (5.0-9.0) Urine Specific [place] 1.016 (1.001-1.035) Urine Protein Negative (Negative) Urine Ketones Trace (Negative) Urine Blood Negative /uL (Negative) Urine Nitrite Negative (Negative) Urine Bilirubin Negative (Negative) Urine Urobilinogen Normal mg/dL (Negative) Urine Leukocyte Esterase 2+ /uL (Negative) Urine RBC 2 /hpf (0 - 4) Urine Microscopic WBC 7 /HPF (0-5) H Urine Squamous Epithelial Cells Few /hpf (<5) Urine Bacteria None seen /hpf (None Seen) Urine Mucus Few (None Seen) Urine Glucose Normal mg/dL (Normal) Labs and/or images reviewed: Labs reviewed by me, Image(s) reviewed by me Assessment/Plan Assessment/Plan Syncope: CT head negative chest x-ray negative carotid ultrasound negative, Neurology consult for Dr. Veras Recurrent falls Complicated UTI Rocephin Hypertension Hypercholesterolemia lipitor Diabetes type 2 Elevated D-dimer CT chest angiogram rule out PE Morbid obesity BMI 31: counseled Time spent 45 minutes Advanced care planning time 20 minutes Patient is full code Plan discussed with: Patient My Orders Orders - KYLE CAPONE MD Procedure Category Date Status Time * Neurology Consult CONS 06/12/25 Transmitted 11:50 Date of Service: Jun 12, 2025 Billing Provider: KYLE CAPONE MD Common Visit Codes: [id number] INP/OBS CARE(HIGH) Secondary Visit Codes: [id number]-[id number] CARE PLAN 30 MINUTES KYLE CAPONE MD Jun 12, 2025 11:55
[2025-06-12] MEDS ORDERED: IOHEXOL 350 MG/ML 100ML IJ ONE (13:50)
--- NOTE | 2025-06-12 14:49 | DVH ---
EXAM: CT CT ANGIO CHEST CONTRAST History: Elevated D-dimer rule out PE Comparison Study: None TECHNIQUE: A digital oncology rep specialist image was obtained. During the uneventful, intravenous administration of c ontrast material, multislice data acquisition was obtained through the chest. 3-D postprocessing is performed by technologist including MIP imaging Radiation Dose : CTDI vol 16.22 mGy, DLP 641.33 mGy*cm. Findings: Lungs: Mild diffuse peripheral reticulation. Pleura: Unremarkable Heart/Great vessels: No cardiomegaly or pericardial effusion. Moderate coronary atherosclerosis. No e vidence of a pulmonary embolism, aortic aneurysm, or dissection. Mediastinum: Unremarkable Soft tissues/Bones: Mild multilevel degenerative changes of the thoracic spine. Cholecystectomy. Impression: 1. No evidence of a pulmonary embolism, aneurysm, or dissection.
[2025-06-12] MEDS: ATORVASTATIN 20 MG TAB PO SCH (20:28)
--- NOTE | 2025-06-12 22:41 | DVHINCON2 ---
Date of service: Jun 12, [address] Plummer Reason for Consultation Ataxia History of Present Illness Ms. Abrams is a 69 years old right-handed female with a history of hypertension, diabetes, dyslipidemia, chronic kidney failure, she came to the [facility] on 06/11/2025 with a chief complaint of gait disturbance. At this time, she is alert and fully oriented, she provided the following history Follow up with a five month, she has progress gait disturbance, in that she became unsteady with no associated dizziness or any other warning symptoms. For about three months she fall sometime without warning her problem to progressive, she more likely when it is dark, and when she is walking on unpaved/uneven ground For the least one year of time, she has tingling, numbness and burning pain in the soles. For about six months, she has intermittent burning pain in the legs, with worse in the morning. He feels unsteady when she closed eyes for head showering She is asymptomatic, but CT head showed enlarged pituitary gland Urinalysis, 06/11/2025: WBC: 7, urine leukocyte esterase: 2+ CBC, 06/11/2025: Unremarkable CMP, 06/12/2025: Unremarkable HGB A1c, 06/12/2025: 6.7 TG/HDL/LDL/HDL, 06/12/2025: 73/120/52/52 Vitamin B12, 06/12/2025: 1214 Folic acid, 06/12/2025: 23.51 TSH, 06/12/2025: 4.83 Carotid Doppler, 06/12/25: No hemodynamically significant stenosis noted in the right carotid system. No hemodynamically significant stenosis noted in the left carotid system. CT head, 06/11/2025: No intracranial hemorrhage or mass effect. Prominent pituitary gland measuring 12 x 9 mm. Recommend correlation with appropriate lab values. MRI of the brain with and without contrast, pituitary protocol recommended for further evaluation. MRI head, 05/31/2024: 1. No acute intracranial process identified. 2. Mild chronic paranasal sinus disease Past Medical History Hypertension, diabetes, dyslipidemia, UTI, chronic kidney failure Past Surgical History Appendectomy, cholecystectomy, left knee surgery Family History: Cerebrovascular accident (CVA) G8 MOTHER Diabetes mellitus G8 MOTHER G8 FATHER FH: cancer G8 MOTHER Hypertension G8 MOTHER G8 FATHER Family History Hypertension, diabetes, coronary artery disease, stroke, cancer Social History She smokes when she was a teen. She denies a history of drug/alcohol abuse Allergies: Coded Allergies: No Known Drug Allergy (Verified Allergy, Unknown, 05/30/24) Home Meds Reported Medications Metoclopramide Hcl (Metoclopramide Hcl) 10 Mg Tab, 10 MG PO for 30 Days, MG 05/30/24 Cholecalciferol (Vitamin D) 2,000 Unit Cap, PO, CAP 05/30/24 Solifenacin Succinate (Solifenacin Succinate) 10 Mg Tab, 10 MG PO, TAB 05/30/24 Nitroglycerin (Nitroglycerin Lingual) 0.4 Mg/[place] Spr, 0.4 MG TL, SPR 05/30/24 Nitroglycerin (Nitroglycerin Lingual) 0.4 Mg/[place] Spr, 0.4 MG TL, SPR 05/30/24 Nitroglycerin (Intra-Anal) (Nitroglycerin) 0.4 % Oin, % ND, OIN 05/30/24 Escitalopram Oxalate (Lexapro) 5 Mg Tab, 1 TAB PO DAILY, #30 TAB 2 Refills 05/30/24 Calcium Carbonate (Antacid) 500 Mg Chw, 500 MG PO, TAB.CHEW 05/30/24 Multiple Vitamin (Multi Vitamin) 1 Tab Tab, 1 TAB PO, TAB 05/30/24 Insulin Lispro (Human) (Humalog) 100 Unit/Ml Inj, 100 UNIT SC, INJ 05/30/24 Insulin Glargine (Lantus) 100 Unit/Ml Inj, 100 UNIT SC, INJ 05/30/24 Nortriptyline Hcl (PAMELOR CAPSULE) 25 Mg Cp, 1 CAP PO QPM, #30 CAP 3 Refills 05/30/24 Omeprazole (Gnp Omeprazole) 20 Mg Tab, 1 TAB PO DAILY, #90 TAB 1 Refill 05/30/24 Atorvastatin Calcium (ATORVASTATIN CALCIUM) 20 Mg Tab, 1 TAB PO DAILY, #30 TAB 5 Refills 05/30/24 Gabapentin (Gabapentin) 600 Mg Tab, 600 MG PO for 30 Days, MG 05/30/24 Metoprolol Tartrate (Metoprolol Tartrate) 50 Mg Tab, 50 MG PO, TAB 05/30/24 Lisinopril (Lisinopril) 20 Mg Tab, 20 MG PO DAILY for 30 Days, MG 05/30/24 Amlodipine Besylate (Amlodipine Besylate) 5 Mg Tab, 5 MG PO DAILY for 30 Days, MG 05/30/24 Current Medications Current Medications Medications (Trade) Dose Ordered Sig/[place] Route PRN Reason Start Time Stop Time Status Last Admin Ceftriaxone Sodium 50 ml @ 100 mls/hr Q24H IV 06/12/25 20:00 06/12/25 20:32 Metoprolol Tartrate (Lopressor Tablet) 50 mg DAILY PO 06/12/25 10:00 06/12/25 09:40 Diagnostic Test (Pha) (Accu-Chek Comfort Curve T) 1 strip ACHS 06/12/25 07:00 06/12/25 20:47 Insulin Human Regular (InsuLIN R) ACHS SC 06/12/25 07:00 06/12/25 20:39 Dextrose 50 ml UD PRN IV Blood Sugar LESS THAN 60 06/12/25 06:45 Atorvastatin Calcium (Lipitor) 40 mg HS PO 06/12/25 22:00 06/12/25 20:28 Review of Systems As above, the other systems are negative Vital Signs Vital Signs Date Time Temp Pulse Resp B/P (MAP) Pulse Ox O2 Delivery O2 Flow Rate FiO2 06/12/25 21:00 98.0 71 17 142/75 (97) 94 98.0 06/12/25 08:00 Room Air* 0 21 Physical Exam GENERAL EXAM: General: the patient is well developed and nourished. No acute distress. HEENT: Normocephalic, neck is supple, no carotid bruits. No mass. RESPIRATORY: Normal respiratory effort with symmetrical lung expansion. Lungs clear to auscultation. CARDIOVASCULAR: Regular rate and rhythm with no murmurs. S1, S2. ABDOMEN: Soft, nontender, normal bowel sound NEUROLOGICAL: MENTAL STATUS: Awake and alert. Oriented to person, place, time and general circumstances. Able to give personal history. SPEECH, LANGUAGE, HIGHER CORTICAL FUNCTION: no aphasia or dysathria. CRANIAL NERVES: #2: Intact visual palma to confrontation. The optic discs were sharp. #3,4,6: Pupils are equal, round and reactive. EOMs full and conjugate. No nystagmus. #5: Facial sensation intact in all three divisions bilaterally. Mandibular stren gth intact. #7: Facial muscles symmetrical and strength intact. #8: Hearing grossly normal to voice. #9,10: Uvula and soft palate rise in the midline. Swallow and voice are normal. #11: Trapezius and sternomastoid strength intact bilaterally. #12: Tongue midline. No fasciculations or atrophy. SENSATION: Sensation to touch and pinprick is diminished distally in the lower extremities MOTOR: Normal tone in the upper and lower extremity. Normal muscle bulk. No fasciculations. No abnormal movements or posturing. Muscle strength of the major groups in the upper extremities is 5/5. Muscle strength of the major groups in the lower extremities is 5/5. REFLEXES: Deep tendon reflexes are symmetrically diminished in the lower extremities. No pathological reflexes. CEREBELLAR/COORDINATION: Finger to nose and heel to saha are normal bilaterally. GAIT/STATION: deferred. Labs/Diagnostic Data Labs Test 06/12/25 20:19 06/12/25 06:36 06/11/25 13:57 Range/Units POC Glucose 243 H 70-106 mg/dl White Blood Count 4.3 #L 4.4-10.8 10^3/uL Red Blood Count 4.21 4.0-5.20 10^6/uL Hemoglobin 13.1 12.2-16.2 g/dL Hematocrit 38.2 36.0-46.0 % Mean Corpuscular Volume 90.8 80.0-100.0 fL Mean Corpuscular Hemoglobin 31.2 28.0-32.0 pg Mean Corpuscular Hemoglobin Concent 34.4 32.0-36.0 g/dL Red Cell Distribution Width 14.0 11.8-14.3 % Platelet Count 199 140-450 10^3/uL Mean Platelet Volume 7.7 6.9-10.8 fL Neutrophils (%) (Auto) 67.1 37.0-80.0 % Lymphocytes (%) (Auto) 16.6 10.0-50.0 % Monocytes (%) (Auto) 11.3 0.0-12.0 % Eosinophils (%) (Auto) 3.2 0.0-7.0 % Basophils (%) (Auto) 1.8 0.0-2.0 % Neutrophils # (Auto) 2.9 1.6-8.6 10 ^3/uL Lymphocytes # (Auto) 0.7 0.4-5.4 10 ^3/uL Monocytes # (Auto) 0.5 0-1.3 10 ^3/uL Eosinophils # (Auto) 0.1 0-0.8 10 ^3/uL Basophils # (Auto) 0.1 0-0.2 10 ^3/uL Nucleated Red Blood Cells 0.1 % Prothrombin Time 11.0 9.3-11.8 sec Prothrombin Time INR 1.04 0.9-1.15 D-Dimer, Quantitative 1.13 H 0.0-0.49 mg/L FEU Sodium Level 139 136-145 mmol/L Potassium Level 3.3 L 3.5-5.1 mmol/L Chloride Level 102 98-107 mmol/L Carbon Dioxide Level 27 20-31 mmol/L Anion Gap 10 5-15 Blood Urea Nitrogen 11 9-23 mg/dL Creatinine 0.92 0.550-1.02 mg/dL Glomerular Filtration Rate Calc 67 >90 mL/min BUN/Creatinine Ratio 12.0 10.0-20.0 Serum Glucose 123 H 74-106 mg/dL Hemoglobin A1c 6.7 H <5.7 % A1C Calcium Level 9.3 8.7-10.4 mg/dL Total Bilirubin 0.7 0.2-1.0 mg/dL Direct Bilirubin 0.3 <0.3 mg/dL Aspartate Amino Transferase (AST) 52 H 13-40 U/L Alanine Aminotransferase (ALT) 28 7-40 U/L Alkaline Phosphatase 84 46-116 U/L Troponin I High Sensitivity 7 </=34 ng/L B-Type Natriuretic Peptide 17.91 0-100 pg/mL Total Protein 7.2 5.7-8.2 g/dL Albumin 4.0 3.2-4.8 g/dL Triglycerides Level 73 < 150 mg/dL Cholesterol Level 120 < 200 mg/dL LDL Cholesterol 52 < 100 mg/dL HDL Cholesterol 52 40-59 mg/dL Vitamin B12 Level 1214 H 211-911 pg/mL Folic Acid 23.51 >5.38 ng/mL Thyroid Stimulating Hormone (TSH) 4.83 H 0.55-4.78 uIU/mL Urine Color Yellow Yellow Urine Clarity Clear Clear Urine pH 5.5 5.0-9.0 Urine Specific [place] 1.016 1.001-1.035 Urine Protein Negative Negative Urine Ketones Trace Negative Urine Blood Negative Negative /uL Urine Nitrite Negative Negative Urine Bilirubin Negative Negative Urine Urobilinogen Normal Negative mg/dL Urine Leukocyte Esterase 2+ Negative /uL Urine RBC 2 0 - 4 /hpf Urine Microscopic WBC 7 H 0-5 /HPF Urine Squamous Epithelial Cells Few <5 /hpf Urine Bacteria None seen None Seen /hpf Urine Mucus Few None Seen Urine Glucose Normal Normal mg/dL Assessment Gait disturbance likely secondary to diabetic polyneuropathy Diabetic polyneuropathy Abnormal CT scan, to rule out pituitary gland Plan/Recommendation Monitoring Supportive treatment Telemetry Prolactin, cortisone level, FSH, LH A cane Foot care Daily foot inspection Wide, soft and protect she was only Physical therapy Endocrinology consultation Re: Pituitary adenoma Prognosis: Poor This medical document was created using an electronic medical record system with [employer] computerized dictation system. Although this document has been carefully reviewed, there may still be some phonetic and typographical errors. These areas are purely typographical due to imperfections of the software programs, and do not reflect any compromise in the patient's medical care. Plan discussed with: Patient, Other LIZZ MARTINEZ MD Jun 12, 2025 22:41
[2025-06-12 23:45] LABS: Follicle Stimulating Hormone 89.53 IU/L (SEE BELOW)
[2025-06-13] VITALS (8 sets, daily range): BP systolic 103–148; BP diastolic 64–83; PULSE 63–109; RESP 16–19; TEMP 97.6–98.2; O2SAT 93–99
--- NOTE | 2025-06-13 13:02 | DVHSR ---
APPROVED REPORT EXAM: Two-dimensional and M-mode echocardiogram with Doppler and color Doppler. Blood Pressure: 125/57 mmHg INDICATION Syncope RISK FACTORS Height: 5'9", Weight: 215 DIMENSIONS LVDd4.7 (3.8-5.7cm)LA (2D)3.8 (1.9-4.0cm)Aortic Root2.8 (2.0-3.7cm) LVDs2.9 (2.5-4.0cm)LA (MM) (1.9-4.0cm)Aortic Cusp Exc1.3 (1.5-2.0cm) EF (%) 67.0 (55-70%)Rt. Atrium4.1 (1.9-4.0cm)Asc. Aorta cm IVSd1.0 (0.7-1.1cm)RV (D)3.3 (1.8-2.4cm) PWd1.0 (0.7-1.1cm) Mitral Valve MitralMitral Stenosis E wave0.45m/sMV Mean GR.mmHg A wave0.77m/sMV Peak GR.mmHg E/A ratio0.62D MVAcm2 DECEL [id number] 1/2 [place] Aortic Valve Aortic ValveAortic Stenosis V11.05m/Sosa Mean GR.4mmHg V21.30m/Sosa Peak GR.7mmHg LVOT Diameter2.1 (1.8-2.4cm)Doppler AVA2.80cm2 Other Information Quality : Technically LimitedRhythm : Technically limited study due to body habitus. Conclusion Sinus rhythm. Mild aortic root enlargement. Mild left atrial enlargement. Valves are normal. EF of 60% with normal RV function. Dopplers unremarkable. No pericardial effusion masses or vegetations.
--- NOTE | 2025-06-13 13:19 | DVHPN2 ---
Reviewed: Care Plan, H&P, Labs, Medications, Previous Orders, Radiology Changes from previous H/P or p: No Changes Eyes: No Pain, No Vision change, No Conjunctivae inflammation, No Eyelid inflammation, No Other, No Redness ENT: No Ear pain, No Ear discharge, No Nose pain, No Nose discharge, No Nose congestion, No Mouth pain, No Mouth swelling, No Throat pain, No Throat swelling, No Other Cardiovascular: No Chest Pain, No Palpitations, No Orthopnea, No Paroxysmal Noc. Dyspnea, No Edema, No Lt Headedness, No Other Respiratory: No Cough, No Dry, No Shortness of breath, No SOB with excertion, No Wheezing, No Hemoptysis, No Pleuritic Pain, No Sputum, No Other Gastrointestinal: Nausea; No Vomiting, No Abdominal Pain, No Diarrhea, No Constipation, No Melena, No Hematochezia, No Other Genitourinary: No Dysuria, No Frequency, No Incontinence, No Hematuria, No Retention, No Other Musculoskeletal: No other, No neck pain, No shoulder pain, No arm pain, No back pain, No hand pain, No leg pain, No foot pain Skin: No Rash, No Lesions, No Jaundice, No Bruising, No Other Objective Vitals Vital Signs Date Time Temp Pulse Resp B/P (MAP) Pulse Ox O2 Delivery O2 Flow Rate FiO2 06/13/25 12:48 98.2 109 19 128/77 (94) 94 98.2 06/13/25 08:00 Room Air* 0 21 Intake/Output Intake and Output 06/13/25 07:00 Intake Total 1150 ml Balance 1150 ml Intake Oral 1100 ml IV Total 50 ml # Voids 2 Medications Current Medications Medications Dose Ordered Sig/[place] Route Start Time Stop Time Status Last Admin Dose Admin Ceftriaxone Sodium 50 ml @ 100 mls/hr Q24H IV 06/12/25 20:00 06/12/25 20:32 100 MLS/HR Metoprolol Tartrate 50 mg DAILY PO 06/12/25 10:00 06/13/25 09:09 50 MG Diagnostic Test (Pha) 1 strip ACHS 06/12/25 07:00 06/13/25 11:30 1 STRIP Insulin Human Regular ACHS SC 06/12/25 07:00 06/13/25 11:30 3 UNITS Dextrose 50 ml UD PRN IV 06/12/25 06:45 Atorvastatin Calcium 40 mg HS PO 06/12/25 22:00 06/12/25 20:28 40 MG Laboratory Results Laboratory Tests 06/12/25 06:36 Urinalysis Test 06/11/25 13:57 Urine Color Yellow (Yellow) Urine Clarity Clear (Clear) Urine pH 5.5 (5.0-9.0) Urine Specific [place] 1.016 (1.001-1.035) Urine Protein Negative (Negative) Urine Ketones Trace (Negative) Urine Blood Negative /uL (Negative) Urine Nitrite Negative (Negative) Urine Bilirubin Negative (Negative) Urine Urobilinogen Normal mg/dL (Negative) Urine Leukocyte Esterase 2+ /uL (Negative) Urine RBC 2 /hpf (0 - 4) Urine Microscopic WBC 7 /HPF (0-5) H Urine Squamous Epithelial Cells Few /hpf (<5) Urine Bacteria None seen /hpf (None Seen) Urine Mucus Few (None Seen) Urine Glucose Normal mg/dL (Normal) Labs and/or images reviewed: Labs reviewed by me, Image(s) reviewed by me Assessment/Plan Assessment/Plan Syncope: CT head negative chest x-ray negative carotid ultrasound negative, Neurology consult for Dr. Veras appreciated, rule out pituitary pathology, labs pending Recurrent falls Complicated UTI Rocephin Hypertension Hypercholesterolemia lipitor Diabetes type 2 Elevated D-dimer PE Ruled out Morbid obesity BMI 31: counseled Time spent 45 minutes Advanced care planning time 20 minutes Patient is full code MRI brain pending Plan discussed with: Patient Date of Service: Jun 13, 2025 Billing Provider: KYLE CAPONE MD Common Visit Codes: [id number] INP/OBS CARE(HIGH) KYLE CAPONE MD Jun 13, 2025 13:19
--- NOTE | 2025-06-13 21:27 | DVHPN2 ---
Progress Note - Dictate Date Seen: Jun 13, 2025 Medical Necessity Reason Pt with a Central, PICC or Fol: No Subjective Ms. Abrams is a 69 years old right-handed female with a history of hypertension, diabetes, dyslipidemia, chronic kidney failure, she came to the [facility] on 06/11/2025 with a chief complaint of gait disturbance. I have seen and examined the patient, talked to her nurse, she is doing fine, no new company, alert and fully oriented, Physical therapy and application packaging consultant have not seen her yet Urinalysis, 06/11/2025: WBC: 7, urine leukocyte esterase: 2+ CBC, 06/11/2025: Unremarkable CMP, 06/12/2025: Unremarkable HGB A1c, 06/12/2025: 6.7 TG/HDL/LDL/HDL, 06/12/2025: 73/120/52/52 Vitamin B12, 06/12/2025: 1214 Folic acid, 06/12/2025: 23.51 TSH, 06/12/2025: 4.83 FSH, 06/12/2025: 8.53 LH, 06/12/2025: 32.7 Prolactin, 06/12/2025: 34.6 Carotid Doppler, 06/12/25: No hemodynamically significant stenosis noted in the right carotid system. No hemodynamically significant stenosis noted in the left carotid system. CT head, 06/11/2025: No intracranial hemorrhage or mass effect. Prominent pituitary gland measuring 12 x 9 mm. Recommend correlation with appropriate lab values. MRI of the brain with and without contrast, pituitary protocol recommended for further evaluation. MRI head, 05/31/2024: 1. No acute intracranial process identified. 2. Mild chronic paranasal sinus disease vital signs Vital Sign Date Time Temp Pulse Resp B/P (MAP) Pulse Ox O2 Delivery O2 Flow Rate FiO2 06/13/25 17:08 97.6 65 18 145/70 (95) 98 97.6 06/13/25 08:00 Room Air* 0 21 Total Intake and Output 06/12/25 06/12/25 06/13/25 15:00 23:00 07:00 Intake Total 900 ml 250 ml Balance 900 ml 250 ml medications Current Medications Medications Dose Ordered Sig/[place] Route Start Time Stop Time Status Last Admin Dose Admin Ceftriaxone Sodium 50 ml @ 100 mls/hr Q24H IV 06/12/25 20:00 06/13/25 20:34 100 MLS/HR Metoprolol Tartrate 50 mg DAILY PO 06/12/25 10:00 06/13/25 09:09 50 MG Diagnostic Test (Pha) 1 strip ACHS 06/12/25 07:00 06/13/25 17:00 1 STRIP Insulin Human Regular ACHS SC 06/12/25 07:00 06/13/25 11:30 3 UNITS Dextrose 50 ml UD PRN IV 06/12/25 06:45 Atorvastatin Calcium 40 mg HS PO 06/12/25 22:00 06/13/25 20:34 40 MG objective General: the patient is well developed and nourished. No acute distress. MENTAL STATUS: Awake and alert. Oriented to person, place, time and general circumstances. Able to give personal history. SPEECH, LANGUAGE, HIGHER CORTICAL FUNCTION: no aphasia or dysathria. CRANIAL NERVES: Pupils are equal, round and reactive. EOMs full and conjugate. No nystagmus. Facial sensation intact in all three divisions bilaterally. Mandibular strength intact. Facial muscles symmetrical and strength intact. Tongue midline. No fasciculations or atrophy. SENSATION: Sensation to touch and pinprick is diminished distally in the lower extremities MOTOR: Normal tone in the upper and lower extremity. Normal muscle bulk. No fasciculations. No abnormal movements or posturing. Muscle strength of the major groups in the extremities is 5/5. REFLEXES: Deep tendon reflexes are symmetrically diminished in the lower extremities. No pathological reflexes. CEREBELLAR/COORDINATION: Finger to nose and heel to saha are normal bilaterally. GAIT/STATION: deferred laboratory and microbiology Laboratory Tests 06/12/25 06:36 Test 06/12/25 06:36 Range/Units Serum Glucose 123 H 74-106 mg/dL Problem List Gait disturbance likely secondary to diabetic polyneuropathy Diabetic polyneuropathy Abnormal CT head scan, to rule out pituitary gland Assessment/Plan Monitoring Supportive treatment Telemetry Cortisone level A cane Foot care Daily foot inspection Wide, soft and protect she was only Physical therapy Endocrinology consultation Re: Pituitary adenoma This medical document was created using an electronic medical record system with [employer] system. Although this document has been carefully reviewed, there may still be some phonetic and typographical errors. These areas are purely typographical due to imperfections of the software programs, and do not reflect any compromise in the patient's medical care. Prognosis poor Plan discussed with: Other LIZZ MARTINEZ MD Jun 13, 2025 21:27
[2025-06-14] VITALS (8 sets, daily range): BP systolic 139–183; BP diastolic 71–87; PULSE 66–96; RESP 16–20; TEMP 97.5–98.4; O2SAT 95–99
--- NOTE | 2025-06-14 08:40 | DVHPN2 ---
Reviewed: Care Plan, H&P, Labs, Medications, Previous Orders, Radiology Changes from previous H/P or p: No Changes Eyes: No Pain, No Vision change, No Conjunctivae inflammation, No Eyelid inflammation, No Other, No Redness ENT: No Ear pain, No Ear discharge, No Nose pain, No Nose discharge, No Nose congestion, No Mouth pain, No Mouth swelling, No Throat pain, No Throat swelling, No Other Cardiovascular: No Chest Pain, No Palpitations, No Orthopnea, No Paroxysmal Noc. Dyspnea, No Edema, No Lt Headedness, No Other Respiratory: No Cough, No Dry, No Shortness of breath, No SOB with excertion, No Wheezing, No Hemoptysis, No Pleuritic Pain, No Sputum, No Other Gastrointestinal: Nausea; No Vomiting, No Abdominal Pain, No Diarrhea, No Constipation, No Melena, No Hematochezia, No Other Genitourinary: No Dysuria, No Frequency, No Incontinence, No Hematuria, No Retention, No Other Musculoskeletal: No other, No neck pain, No shoulder pain, No arm pain, No back pain, No hand pain, No leg pain, No foot pain Skin: No Rash, No Lesions, No Jaundice, No Bruising, No Other Objective Vitals Vital Signs Date Time Temp Pulse Resp B/P (MAP) Pulse Ox O2 Delivery O2 Flow Rate FiO2 06/14/25 05:00 98.1 72 17 144/81 (102) 95 98.1 06/13/25 20:00 Room Air* 0 21 Intake/Output Intake and Output 06/14/25 07:00 Intake Total 1690 ml Balance 1690 ml Intake Oral 1640 ml IV Total 50 ml # Voids 5 # Bowel Movements 1 Medications Current Medications Medications Dose Ordered Sig/[place] Route Start Time Stop Time Status Last Admin Dose Admin Ceftriaxone Sodium 50 ml @ 100 mls/hr Q24H IV 06/12/25 20:00 06/13/25 20:34 100 MLS/HR Metoprolol Tartrate 50 mg DAILY PO 06/12/25 10:00 06/13/25 09:09 50 MG Diagnostic Test (Pha) 1 strip ACHS 06/12/25 07:00 06/14/25 06:13 1 STRIP Insulin Human Regular ACHS SC 06/12/25 07:00 06/14/25 06:35 2 UNITS Dextrose 50 ml UD PRN IV 06/12/25 06:45 Atorvastatin Calcium 40 mg HS PO 06/12/25 22:00 06/13/25 20:34 40 MG Laboratory Results Laboratory Tests 06/12/25 06:36 Urinalysis Test 06/11/25 13:57 Urine Color Yellow (Yellow) Urine Clarity Clear (Clear) Urine pH 5.5 (5.0-9.0) Urine Specific [place] 1.016 (1.001-1.035) Urine Protein Negative (Negative) Urine Ketones Trace (Negative) Urine Blood Negative /uL (Negative) Urine Nitrite Negative (Negative) Urine Bilirubin Negative (Negative) Urine Urobilinogen Normal mg/dL (Negative) Urine Leukocyte Esterase 2+ /uL (Negative) Urine RBC 2 /hpf (0 - 4) Urine Microscopic WBC 7 /HPF (0-5) H Urine Squamous Epithelial Cells Few /hpf (<5) Urine Bacteria None seen /hpf (None Seen) Urine Mucus Few (None Seen) Urine Glucose Normal mg/dL (Normal) Labs and/or images reviewed: Labs reviewed by me, Image(s) reviewed by me Assessment/Plan Assessment/Plan Syncope: CT head negative chest x-ray negative carotid ultrasound negative, Neurology consult for Dr. Veras appreciated, Slightly increased prolactin level possible pituitary adenoma, neurologist advised outpatient endocrinology follow up, patient was advised accordingly Recurrent falls Complicated UTI Rocephin Hypertension Hypercholesterolemia lipitor Diabetes type 2 Elevated D-dimer PE Ruled out Morbid obesity BMI 31: counseled Time spent 45 minutes Advanced care planning time 20 minutes Patient is full code MRI brain pending Plan discussed with: Patient My Orders Orders - KYLE CAPONE MD Procedure Category Date Status Time Brain Head Wo Contrast MRI 06/13/25 Logged 13:18 Date of Service: Jun 14, 2025 Billing Provider: KYLE CAPONE MD Common Visit Codes: [id number] INP/OBS CARE(HIGH) KYLE CAPONE MD Jun 14, 2025 08:40
[2025-06-14] MEDS: POTASSIUM CHL 20 Meq TABLET PO ONE (11:17)
--- NOTE | 2025-06-14 14:09 | DVH ---
EXAMINATION: MRI BRAIN HEAD WO CONTRAST INDICATION: Unsteady gait COMPARISON: CT HEAD WITHOUT CONTRAST on DOS: 06/11/25, MRI BRAIN HEAD WO CONTRAST on DOS: 05/31/24, CT A NGIO HEAD/NECK on DOS: 05/30/24, CT HEAD WITHOUT CONTRAST on DOS: 05/30/24 TECHNIQUE: Multiplanar, multisequence magnetic resonance imaging of the brain was performed without the use of i ntravenous contrast. FINDINGS: No evidence of acute or remote infarct. No intracranial hemorrhage. No mass effect. There is periventricular/deep white matter T2/FLAIR hyperintensity is nonspecific, but most commonly associated with chronic microvascular disease. The ventricles and sulci are normal in size for age. Clear basal cisterns. Flow voids in the major intracranial vessels are maintained. No abnormality of the orbits. Paranasal sinuses and mastoid air cells are clear. No abnormality of the visualized osseous structures and extracranial soft tissues. IMPRESSION: No acute infarct, intracranial hemorrhage, mass effect, or hydrocephalus.
--- NOTE | 2025-06-14 23:58 | DVHPN2 ---
Progress Note - Dictate Date Seen: Jun 14, 2025 Medical Necessity Reason Pt with a Central, PICC or Fol: No Subjective Ms. Abrams is a 69 years old right-handed female with a history of hypertension, diabetes, dyslipidemia, chronic kidney failure, she came to the [facility] on 06/11/2025 with a chief complaint of gait disturbance. I have seen and examined the patient, talked to her nurse, she is doing fine, no new company, alert and fully oriented, Physical therapy and batcher operator have not seen her yet Urinalysis, 06/11/2025: WBC: 7, urine leukocyte esterase: 2+ CBC, 06/11/2025: Unremarkable CMP, 06/12/2025: Unremarkable HGB A1c, 06/12/2025: 6.7 TG/HDL/LDL/HDL, 06/12/2025: 73/120/52/52 Vitamin B12, 06/12/2025: 1214 Folic acid, 06/12/2025: 23.51 TSH, 06/12/2025: 4.83 FSH, 06/12/2025: 8.53 LH, 06/12/2025: 32.7 Prolactin, 06/12/2025: 34.6 A.m. cortisol, 06/14/2025: 15.9 Carotid Doppler, 06/12/25: No hemodynamically significant stenosis noted in the right carotid system. No hemodynamically significant stenosis noted in the left carotid system. CT head, 06/11/2025: No intracranial hemorrhage or mass effect. Prominent pituitary gland measuring 12 x 9 mm. Recommend correlation with appropriate lab values. MRI of the brain with and without contrast, pituitary protocol recommended for further evaluation. MRI head, 05/31/2024: 1. No acute intracranial process identified. 2. Mild chronic paranasal sinus disease vital signs Vital Sign Date Time Temp Pulse Resp B/P (MAP) Pulse Ox O2 Delivery O2 Flow Rate FiO2 06/14/25 21:00 97.5 67 18 183/82 (115) 98 97.5 06/14/25 20:00 Room Air* 0 21 Total Intake and Output 06/13/25 06/13/25 06/14/25 15:00 23:00 07:00 Intake Total 1190 ml 500 ml Balance 1190 ml 500 ml medications Current Medications Medications Dose Ordered Sig/Kolby Route Start Time Stop Time Status Last Admin Dose Admin Ceftriaxone Sodium 50 ml @ 100 mls/hr Q24H IV 06/12/25 20:00 06/14/25 22:21 100 MLS/HR Metoprolol Tartrate 50 mg DAILY PO 06/12/25 10:00 06/14/25 11:21 50 MG Diagnostic Test (Pha) 1 strip ACHS 06/12/25 07:00 06/14/25 22:19 1 STRIP Insulin Human Regular ACHS SC 06/12/25 07:00 06/14/25 22:20 2 UNITS Dextrose 50 ml UD PRN IV 06/12/25 06:45 Atorvastatin Calcium 40 mg HS PO 06/12/25 22:00 06/14/25 22:19 40 MG objective General: the patient is well developed and nourished. No acute distress. MENTAL STATUS: Awake and alert. Oriented to person, place, time and general circumstances. Able to give personal history. SPEECH, LANGUAGE, HIGHER CORTICAL FUNCTION: no aphasia or dysathria. CRANIAL NERVES: Pupils are equal, round and reactive. EOMs full and conjugate. No nystagmus. Facial sensation intact in all three divisions bilaterally. Mandibular strength intact. Facial muscles symmetrical and strength intact. Tongue midline. No fasciculations or atrophy. SENSATION: Sensation to touch and pinprick is diminished distally in the lower extremities MOTOR: Normal tone in the upper and lower extremity. Normal muscle bulk. No fasciculations. No abnormal movements or posturing. Muscle strength of the major groups in the extremities is 5/5. REFLEXES: Deep tendon reflexes are symmetrically diminished in the lower extremities. No pathological reflexes. CEREBELLAR/COORDINATION: Finger to nose and heel to saha are normal bilaterally. GAIT/STATION: deferred laboratory and microbiology Laboratory Tests 06/12/25 06:36 Test 06/12/25 06:36 Range/Units Serum Glucose 123 H 74-106 mg/dL Problem List Gait disturbance likely secondary to diabetic polyneuropathy Diabetic polyneuropathy Abnormal CT head scan, to rule out pituitary gland Assessment/Plan Monitoring Supportive treatment Telemetry Follow-up prolactin level A cane Foot care Daily foot inspection Wide, soft and protect she was only Physical therapy Endocrinology consultation Re: Pituitary adenoma This medical document was created using an electronic medical record system with [employer] dictation system. Although this document has been carefully reviewed, there may still be some phonetic and typographical errors. These areas are purely typographical due to imperfections of the software programs, and do not reflect any compromise in the patient's medical care. Prognosis poor Plan discussed with: Patient, Other LIZZ MARTINEZ MD Jun 14, 2025 23:58
[2025-06-15] MEDS: hydrALAZINE HCL 20 MG/ML VL IV ONE (00:38)
[2025-06-15 01:00] VITALS: BP 154/75; PULSE 69; RESP 18; TEMP 97.5; O2SAT 99
[2025-06-15 05:00] VITALS: BP 154/76; PULSE 97; RESP 18; TEMP 97.6; O2SAT 97
[2025-06-15 09:00] VITALS: BP 176/85; PULSE 104; RESP 20; TEMP 98.2; O2SAT 99
[2025-06-15] MEDS ORDERED: CIPR-173 PO (10:41)
--- NOTE | 2025-06-15 10:41 | DVHPN2 ---
Reviewed: Care Plan, H&P, Labs, Medications, Previous Orders, Radiology Changes from previous H/P or p: No Changes Eyes: No Pain, No Vision change, No Conjunctivae inflammation, No Eyelid inflammation, No Other, No Redness ENT: No Ear pain, No Ear discharge, No Nose pain, No Nose discharge, No Nose congestion, No Mouth pain, No Mouth swelling, No Throat pain, No Throat swelling, No Other Cardiovascular: No Chest Pain, No Palpitations, No Orthopnea, No Paroxysmal Noc. Dyspnea, No Edema, No Lt Headedness, No Other Respiratory: No Cough, No Dry, No Shortness of breath, No SOB with excertion, No Wheezing, No Hemoptysis, No Pleuritic Pain, No Sputum, No Other Gastrointestinal: Nausea; No Vomiting, No Abdominal Pain, No Diarrhea, No Constipation, No Melena, No Hematochezia, No Other Genitourinary: No Dysuria, No Frequency, No Incontinence, No Hematuria, No Retention, No Other Musculoskeletal: No other, No neck pain, No shoulder pain, No arm pain, No back pain, No hand pain, No leg pain, No foot pain Skin: No Rash, No Lesions, No Jaundice, No Bruising, No Other Objective Vitals Vital Signs Date Time Temp Pulse Resp B/P (MAP) Pulse Ox O2 Delivery O2 Flow Rate FiO2 06/15/25 09:21 104 176/85 06/15/25 09:00 98.2 20 99 98.2 06/14/25 20:00 Room Air* 0 21 Intake/Output Intake and Output 06/15/25 07:00 Intake Total 1350 ml Output Total 1000 ml Balance 350 ml Intake Oral 1300 ml IV Total 50 ml Output Urine Total 1000 ml # Voids 4 Medications Current Medications Medications Dose Ordered Sig/Kolby Route Start Time Stop Time Status Last Admin Dose Admin Ceftriaxone Sodium 50 ml @ 100 mls/hr Q24H IV 06/12/25 20:00 06/14/25 22:21 100 MLS/HR Metoprolol Tartrate 50 mg DAILY PO 06/12/25 10:00 06/15/25 09:21 50 MG Diagnostic Test (Pha) 1 strip ACHS 06/12/25 07:00 06/15/25 05:54 1 STRIP Insulin Human Regular ACHS SC 06/12/25 07:00 06/15/25 06:00 3 UNITS Dextrose 50 ml UD PRN IV 06/12/25 06:45 Atorvastatin Calcium 40 mg HS PO 06/12/25 22:00 06/14/25 22:19 40 MG Laboratory Results Laboratory Tests 06/12/25 06:36 Urinalysis Test 06/11/25 13:57 Urine Color Yellow (Yellow) Urine Clarity Clear (Clear) Urine pH 5.5 (5.0-9.0) Urine Specific Bode 1.016 (1.001-1.035) Urine Protein Negative (Negative) Urine Ketones Trace (Negative) Urine Blood Negative /uL (Negative) Urine Nitrite Negative (Negative) Urine Bilirubin Negative (Negative) Urine Urobilinogen Normal mg/dL (Negative) Urine Leukocyte Esterase 2+ /uL (Negative) Urine RBC 2 /hpf (0 - 4) Urine Microscopic WBC 7 /HPF (0-5) H Urine Squamous Epithelial Cells Few /hpf (<5) Urine Bacteria None seen /hpf (None Seen) Urine Mucus Few (None Seen) Urine Glucose Normal mg/dL (Normal) Labs and/or images reviewed: Labs reviewed by me, Image(s) reviewed by me Assessment/Plan Assessment/Plan Syncope: CT head negative chest x-ray negative carotid ultrasound negative, Neurology consult for Dr. Veras appreciated, Slightly increased prolactin level possible pituitary adenoma, neurologist advised outpatient endocrinology follow up, patient was advised accordingly MRI brain negative for any acute pathology or pituitary lesion Recurrent falls Complicated UTI treated with Rocephin Hypertension Hypercholesterolemia lipitor Diabetes type 2 Elevated D-dimer PE Ruled out Morbid obesity BMI 31: counseled Time spent 45 minutes Advanced care planning time 20 minutes Patient is full code MRI brain pending Plan discussed with: Patient Date of Service: Jun 15, 2025 Billing Provider: KYLE CAPONE MD Common Visit Codes: [id number] INP/OBS CARE(HIGH) KYLE CAPONE MD Jun 15, 2025 10:41
--- NOTE | 2025-06-15 10:45 | DVHDS2 ---
Discharge Summary Date of Admission Jun 11, 2025 at 22:49 Date of Discharge: Jun 15, 2025 Admitting Diagnosis Syncope and recurrent falls Wounds: None Labs/Diagnostic Data: Laboratory Results Test 06/15/25 05:40 06/14/25 08:28 06/13/25 05:55 06/12/25 06:36 Cortisol AM Sample 15.90 ug/dL (5.27-22.45) POC Glucose 112 mg/dl (70-106) White Blood Count 4.3 10^3/uL (4.4-10.8) Red Blood Count 4.21 10^6/uL (4.0-5.20) Hemoglobin 13.1 g/dL (12.2-16.2) Hematocrit 38.2 % (36.0-46.0) Mean Corpuscular Volume 90.8 fL (80.0-100.0) Mean Corpuscular Hemoglobin 31.2 pg (28.0-32.0) Mean Corpuscular Hemoglobin Concent 34.4 g/dL (32.0-36.0) Red Cell Distribution Width 14.0 % (11.8-14.3) Platelet Count 199 10^3/uL (140-450) Mean Platelet Volume 7.7 fL (6.9-10.8) Neutrophils (%) (Auto) 67.1 % (37.0-80.0) Lymphocytes (%) (Auto) 16.6 % (10.0-50.0) Monocytes (%) (Auto) 11.3 % (0.0-12.0) Eosinophils (%) (Auto) 3.2 % (0.0-7.0) Basophils (%) (Auto) 1.8 % (0.0-2.0) Neutrophils # (Auto) 2.9 10 ^3/uL (1.6-8.6) Lymphocytes # (Auto) 0.7 10 ^3/uL (0.4-5.4) Monocytes # (Auto) 0.5 10 ^3/uL (0-1.3) Eosinophils # (Auto) 0.1 10 ^3/uL (0-0.8) Basophils # (Auto) 0.1 10 ^3/uL (0-0.2) Nucleated Red Blood Cells 0.1 % Prothrombin Time 11.0 sec (9.3-11.8) Prothrombin Time INR 1.04 (0.9-1.15) D-Dimer, Quantitative 1.13 mg/L FEU (0.0-0.49) Sodium Level 139 mmol/L (136-145) Potassium Level 3.3 mmol/L (3.5-5.1) Chloride Level 102 mmol/L (98-107) Carbon Dioxide Level 27 mmol/L (20-31) Anion Gap 10 (5-15) Blood Urea Nitrogen 11 mg/dL (9-23) Creatinine 0.92 mg/dL (0.550-1.02) Glomerular Filtration Rate Calc 67 mL/min (>90) BUN/Creatinine Ratio 12.0 (10.0-20.0) Serum Glucose 123 mg/dL (74-106) Hemoglobin A1c 6.7 % A1C (<5.7) Calcium Level 9.3 mg/dL (8.7-10.4) Total Bilirubin 0.7 mg/dL (0.2-1.0) Direct Bilirubin 0.3 mg/dL (<0.3) Aspartate Amino Transferase (AST) 52 U/L (13-40) Alanine Aminotransferase (ALT) 28 U/L (7-40) Alkaline Phosphatase 84 U/L (46-116) Troponin I High Sensitivity 7 ng/L (</=34) B-Type Natriuretic Peptide 17.91 pg/mL (0-100) Total Protein 7.2 g/dL (5.7-8.2) Albumin 4.0 g/dL (3.2-4.8) Triglycerides Level 73 mg/dL (< 150) Cholesterol Level 120 mg/dL (< 200) LDL Cholesterol 52 mg/dL (< 100) HDL Cholesterol 52 mg/dL (40-59) Vitamin B12 Level 1214 pg/mL (211-911) Folic Acid 23.51 ng/mL (>5.38) Thyroid Stimulating Hormone (TSH) 4.83 uIU/mL (0.55-4.78) Follicle Stimulating Hormone 89.53 IU/L (SEE BELOW) Luteinizing Hormone 32.7 IU/L Test 06/11/25 13:57 Urine Color Yellow (Yellow) Urine Clarity Clear (Clear) Urine pH 5.5 (5.0-9.0) Urine Specific Boss 1.016 (1.001-1.035) Urine Protein Negative (Negative) Urine Ketones Trace (Negative) Urine Blood Negative /uL (Negative) Urine Nitrite Negative (Negative) Urine Bilirubin Negative (Negative) Urine Urobilinogen Normal mg/dL (Negative) Urine Leukocyte Esterase 2+ /uL (Negative) Urine RBC 2 /hpf (0 - 4) Urine Microscopic WBC 7 /HPF (0-5) Urine Squamous Epithelial Cells Few /hpf (<5) Urine Bacteria None seen /hpf (None Seen) Urine Mucus Few (None Seen) Urine Glucose Normal mg/dL (Normal) Other Laboratory Tests 06/12/25 06:36 Brief Hx & Hospital Course: 69-year-old female with a history of hypertension hypercholesterolemia type 2 diabetes came in admitted for syncope and recurrent falls. CT head negative chest x-ray negative carotid ultrasound negative. Neurology Dr. Veras consultation was done prolactin levels were slightly high suspicious for any pituitary adenoma MRI brain is negative Dr. Veras advised for the patient to follow up with the group segment consultant as an outpatient for further workup UTI treated with Rocephin elevated D-dimer PE ruled out. Patient being discharged home patient is asymptomatic at the time of discharge with stable vital signs. Discharge plan acceptable with the patient. Consults/Reason for consult Neurology Dr. Veras Operations or Procedures CT head MRI brain Carotid ultrasound Condition at Discharge: Fair Final Diagnosis/Problems List Syncope: CT head negative chest x-ray negative carotid ultrasound negative, Neurology consult for Dr. Veras appreciated, Slightly increased prolactin level possible pituitary adenoma, neurologist advised outpatient endocrinology follow up, patient was advised accordingly MRI brain negative for any acute pathology or pituitary lesion Recurrent falls Complicated UTI treated with Rocephin Hypertension Hypercholesterolemia lipitor Diabetes type 2 Elevated D-dimer PE Ruled out Morbid obesity BMI 31: counseled Discharge Disposition: Home Discharge Instruct/Medications Diet: Cardiac 2g Na,low cholest Activity: Light activity Follow Up/Referral: Resume all previous home medications Follow up with your primary Dr Follow up with the Neurology Dr. Veras in two weeks Follow up with the group segment consultant in one week for possible pituitary adenoma workup Medications: Cipro Transmitted to pharmacy Scheduled Amlodipine Besylate (Amlodipine Besylate), 5 MG PO DAILY, (Reported) Atorvastatin Calcium (Atorvastatin Calcium), 1 TAB PO DAILY, (Reported) Ciprofloxacin Hcl (Cipro), 1 TAB PO BID Escitalopram Oxalate (Lexapro), 1 TAB PO DAILY, (Reported) Lisinopril (Lisinopril), 20 MG PO DAILY, (Reported) Nortriptyline Hcl (Pamelor Capsule), 1 CAP PO QPM, (Reported) Omeprazole (Gnp Omeprazole), 1 TAB PO DAILY, (Reported) Miscellaneous Medications Calcium Carbonate (Antacid), 500 MG PO, (Reported) Cholecalciferol (Vitamin D), Unknown Dose PO, (Reported) Gabapentin (Gabapentin), 600 MG PO, (Reported) Insulin Glargine (Lantus), 100 UNIT SC, (Reported) Insulin Lispro (Human) (Humalog), 100 UNIT SC, (Reported) Metoclopramide Hcl (Metoclopramide Hcl), 10 MG PO, (Reported) Metoprolol Tartrate (Metoprolol Tartrate), 50 MG PO, (Reported) Multiple Vitamin (Multi Vitamin), 1 TAB PO, (Reported) Nitroglycerin (Nitroglycerin Lingual), 0.4 MG TL, (Reported) Nitroglycerin (Nitroglycerin Lingual), 0.4 MG TL, (Reported) Nitroglycerin (Intra-Anal) (Nitroglycerin), % ME, (Reported) Solifenacin Succinate (Solifenacin Succinate), 10 MG PO, (Reported) 36 (Time taken for discharge summary 36 minutes) Discharge Statement: "Patient was advised to return to the ER or call 911 if any headaches, dizziness, shortness of breath, chest pain, abdominal pain, bleeding, fevers, or worsening of medical condition. Patient was counseled about treatment plan, medications, possible side effects, patientverbalized understanding. All questions were answered to the best of my ability. This discharge took greater then 30 minutes in planning, reviewing documentation, counseling the patient, and discussing with other team members." ASSESSMENT ASSESSMENT Hospital Course Improved Assessment Syncope: CT head negative chest x-ray negative carotid ultrasound negative, Neurology consult for Dr. Veras appreciated, Slightly increased prolactin level possible pituitary adenoma, neurologist advised outpatient endocrinology follow up, patient was advised accordingly MRI brain negative for any acute pathology or pituitary lesion Recurrent falls Complicated UTI treated with Rocephin Hypertension Hypercholesterolemia lipitor Diabetes type 2 Elevated D-dimer PE Ruled out Morbid obesity BMI 31: counseled Date of Service: Jun 15, 2025 Billing Provider: KYLE CAPONE MD Common Visit Codes: [id number] DISCH DAY >30min KYLE CAPONE MD Jun 15, 2025 10:45
[2025-06-15 13:00] VITALS: BP 149/73; PULSE 77; RESP 18; TEMP 98; O2SAT 96
[2025-06-15 13:47] VITALS: BP 149/73; PULSE 77; RESP 18; TEMP 98; O2SAT 96
== END 2025-06-15 14:55 | disposition home or self-care (01) | DRG 690 ==
LOC: ER 13:15 → OVERFLOW 22:49 → EAST 06-12 03:16
PROVIDERS: ADMIT Family Medicine; ATTEND Family Medicine
DX: N39.0 Urinary tract infection, site not specified (principal); E11.43 Type 2 diabetes mellitus with diabetic autonomic (poly)neuropathy; E66.01 Morbid (severe) obesity due to excess calories; E78.00 Pure hypercholesterolemia, unspecified; E11.22 Type 2 diabetes mellitus with diabetic chronic kidney disease; N18.2 Chronic kidney disease, stage 2 (mild); I12.9 Hypertensive chronic kidney disease with stage 1 through stage 4 chronic kidney disease, or unspecified chronic kidney disease; E11.42 Type 2 diabetes mellitus with diabetic polyneuropathy; F17.200 Nicotine dependence, unspecified, uncomplicated; Z68.31 Body mass index [BMI] 31.0-31.9, adult; Z82.3 Family history of stroke; Z82.49 Family history of ischemic heart disease and other diseases of the circulatory system; Z83.3 Family history of diabetes mellitus; Z88.8 Allergy status to other drugs, medicaments and biological substances; Z90.49 Acquired absence of other specified parts of digestive tract; Z79.899 Other long term (current) drug therapy
CPT/HCPCS: 36415; 70450; 70551; 71046; 71275; 80048; 80053; 80061; 80076; 81001; 82533; 82607; 82746; 82962; 83001; 83002; 83036; 83880; 84146; 84443; 84484; 85025; 85379; 85610; 93306; 93886; 96365; G0378; J1815

== ENCOUNTER 2025-07-10 09:02 | Outpatient (CLI) | payer BC ==
[~2025-07-10 09:02] MED LIST changes: +CIPR-173 PO
[2025-07-10 09:22] LABS: Hematocrit 38.2 % (36.0-46.0); Hemoglobin 12.6 g/dL (12.2-16.2); Mean Corpuscular Hemoglobin 30.7 pg (28.0-32.0); Mean Corpuscular Volume 93.3 fL (80.0-100.0); Nucleated Red Blood Cells % 0.0 %
[2025-07-10 09:50] LABS: Alanine Aminotransferase 20 U/L (7-40); Albumin 3.9 g/dL (3.2-4.8); Alkaline Phosphatase 77 U/L (46-116); Anion Gap 7 (5-15); BUN/Creatinine Ratio 10.0 (10.0-20.0); Bilirubin, Total 0.8 mg/dL (0.2-1.0); Blood Urea Nitrogen 11 mg/dL (9-23); Calcium 9.2 mg/dL (8.7-10.4); Carbon Dioxide 31 mmol/L (20-31); Chloride 103 mmol/L (98-107); Sodium 141 mmol/L (136-145); Total Protein 6.7 g/dL (5.7-8.2)
[2025-07-10 09:53] LABS: Glucose 305 mg/dL (74-106); Potassium 5.5 mmol/L (3.5-5.1)
[2025-07-10 10:10] LABS: Protein, Urine < 6.0 mg/dL (1-14)
== END 2025-07-10 17:00 | disposition home or self-care (01) ==
LOC: LAB 09:02
PROVIDERS: ATTEND Internal Medicine
DX: E11.22 Type 2 diabetes mellitus with diabetic chronic kidney disease (principal); N18.30 Chronic kidney disease, stage 3 unspecified; E11.21 Type 2 diabetes mellitus with diabetic nephropathy; N39.0 Urinary tract infection, site not specified; R80.9 Proteinuria, unspecified; E21.3 Hyperparathyroidism, unspecified; M10.9 Gout, unspecified; E55.9 Vitamin D deficiency, unspecified; D63.1 Anemia in chronic kidney disease
CPT/HCPCS: 36415; 80053; 82570; 83036; 84156; 85025